=== PATIENT | male | born 1950 | race Two or more races ===

== ENCOUNTER 2017-02-28 09:11 | Inpatient (IN) | payer OTHER ==
--- NOTE | 2017-02-28 09:49 | CPEKG ---
Heart Rate: 109 RR Interval: 550 QRSD Interval: 144 QT Interval: 384 QTC Interval: 518 QRS [place]: -63 T Wave [place]: 125 EKG Severity - ABNORMAL ECG - EKG Impression: AFIB/FLUT AND V-PACED COMPLEXES Electronically Signed By: Matt Echols 01-Mar-2017 09:00:13
[2017-02-28 10:48] LABS: % IMMATURE GRANULYOCYTES 0.4 % (0.0-1.1); ABSOLUTE IMMATURE GRANULOCYTES 0.05 10^3/uL (0.00-0.10); ADD DIFF? NO; ADD MORPH? NO; ADD SCAN? NO; ATYPICAL LYMPHOCYTE FLAG 10 (0-99); FRAGMENT RBC FLAG 30 (0-99); HEMATOCRIT 34.6 % (40.0-51.0); LEFT SHIFT FLG 0 (0-99); LIPEMIA HEMOLYSIS FLAG 80 (0-99); MEAN CELL HEMOGLOBIN 30.2 pg (27.9-34.1); MEAN CELL HEMOGLOBIN CONCENTR. 31.8 g/dL (32.4-36.7); MEAN CELL VOLUME 95.1 fL (81.5-99.8); MEAN PLATELET VOLUME 10.3 fL (8.7-11.7); PLATELET CLUMPS FLAG 10 (0-99); PLATELET COUNT 173 10^3/uL (150-400); RED BLOOD CELL COUNT 3.64 10^6/uL (4.40-6.38)
[2017-02-28 10:56] LABS: ANION GAP 14 mEq/L (8-16); CALCIUM 9.2 mg/dL (8.5-10.4); CARBON DIOXIDE 19 mEq/l (22-31); CHLORIDE 106 mEq/L (97-110); CREATININE 0.9 mg/dL (0.7-1.3); GLOMERULAR FILTRATION RATE > 60; GLUCOSE 108 mg/dL (70-100); POTASSIUM 3.6 mEq/L (3.5-5.2); SODIUM 139 mEq/L (134-144)
--- NOTE | 2017-02-28 11:12 | EDPHY ---
H & P Stated Complaint: cough Time Seen by Provider: 02/28/17 09:27 HPI/ROS: CHIEF COMPLAINT: Dyspnea, cough HISTORY OF PRESENT ILLNESS: The patient presents to the ED with a 2 day history of increasing dyspnea and cough. The patient has a history of pancreatic cancer. He is currently on a chemotherapy holiday and has been so for the past 2 weeks. The patient reports that he is on chronic oxygen. The patient does have a history of a pleural effusion requiring drainage in 2016. The patient also has a history of cirrhosis and alcohol abuse. The patient denies fever. He reports that his cough has been nonproductive. He denies any complaints of abdominal pain, nausea or vomiting. The patient does have symptoms surrounding chronic pain. The patient reports that his cough is nonproductive. The patient denies any recent antibiotic use REVIEW OF SYSTEMS: A comprehensive 10 point review of systems is otherwise negative aside from elements mentioned in the history of present illness. Source: Patient - Personal History Current Tetanus/Diphtheria Vaccine: Yes Current Tetanus Diphtheria and Acellular Pertussis (TDAP): Yes - Medical/Surgical History Hx Asthma: No Hx Chronic Respiratory Disease: Yes Hx Diabetes: Yes Hx Cardiac Disease: Yes Hx Renal Disease: No Hx Cirrhosis: No Hx Alcoholism: Yes Hx HIV/AIDS: No Hx Splenectomy or Spleen Trauma: No Other PMH: pneumonia. hyperlipidemia. sleep apnea, torn retina, hip replacemtnt , tonsils, hernia repair, alcoholism, diabetes M II,. pancreatic CA , fatty liver, cholecystectomy, lung ca - Social History Smoking Status: Former smoker - Physical Exam Exam: General Appearance: Elderly male, no acute distress, deconditioned Eyes: Pupils equal and round no pallor or injection ENT, Mouth: Mucous membranes moist Respiratory: Decreased breath sounds noted right lung base, faint rhonchi appreciated on exam bilaterally Cardiovascular: Regular rate and rhythm Gastrointestinal: Abdomen is soft and nontender, no masses, bowel sounds normal Neurological: A&O, normal motor function, normal sensory exam, normal cranial nerves Skin: Warm and dry, no rashes Musculoskeletal: Neck is supple nontender Extremities: symmetrical, full range of motion Constitutional: Initial Vital Signs Temperature (C) 37.1 C 02/28/17 09:15 Heart Rate 126 H 02/28/17 09:15 Respiratory Rate 24 H 02/28/17 09:15 Blood Pressure 157/59 H 02/28/17 09:15 O2 Sat (%) 5 L 02/28/17 09:15 O2 Delivery Mode Oxymask O2 (L/minute) 15 Allergies/Adverse Reactions: No Known Allergies Allergy (Verified 08/03/16 18:02) Home Medications: Medication Instructions Recorded QUEtiapine FUMARATE [Seroquel 300 mg PO HS 05/18/16 300mg (*)] Venlafaxine Xr [Effexor Xr] 150 mg PO DAILY 05/18/16 Aspirin [Aspirin 81mg (*)] 81 mg PO DAILY 07/12/16 Ondansetron Odt [Zofran Odt 4 mg 4 mg PO TID PRN 08/03/16 (*)] Hydrocodone/Acetaminophen [[place] 1 each PO Q4HRS PRN 02/28/17 5/325 (*)] LORazepam [Ativan (*)] 1 mg PO BID@11,21 02/28/17 Multivitamins [Multivitamin (*)] 1 each PO DAILY 02/28/17 Omeprazole [Prilosec 20 mg] 40 mg PO DAILY 02/28/17 amLODIPine BESYLATE [Norvasc 10 mg 10 mg PO DAILY 02/28/17 (*)] morphINE SR [MS Contin/Oramorph SR 30 mg PO BID 02/28/17 30 mg (*)] Medical Decision Making - Diagnostics EKG Interpretation: EKG: Complete interpretation has been separately recorded in the [employer] archive. Summary impression: Intermittent pacing noted, underlying first- degree AV block, sinus rhythm Imaging Results: Chest x-ray PA lateral: Images reviewed by myself and discussed with radiologist: Elevated right hemidiaphragm, right pleural effusion, bilateral pulmonary infiltrates noted. CT chest angiogram: No evidence of pulmonary emboli, large loculated pleural effusion noted at right lung base, worsening metastatic disease. Images reviewed by myself and discussed with radiologist. Imaging: Discussed imaging studies w/ etcher printed circuit boards Radiologist ED Course/Re-evaluation: The patient presents to the ED with a 2 day history of dyspnea. The patient is noted to have a recurrent pleural effusion and initially what was felt to be a infiltrate noted on his chest x-ray. The patient did undergo a CT pulmonary angiogram for further characterization of this chest x-ray which demonstrates no evidence of thromboembolic disease. The patient does have a large loculated pleural effusion. The patient does have some ground-glass appearance to his lung parenchyma on chest x-ray. The patient has had blood cultures x2 obtained in the ED. The patient has been given a single dose of Levaquin to cover for a possible infectious etiology of his symptoms. The patient will require admission to the hospital and likely thoracentesis for further evaluation of his pleural effusion. The patient will be admitted to the hospitalist service. I discussed the case with the hospitalist. The patient will be admitted by Dr. Waldron. The patient did undergo serial examinations while in the emergency department. He remained hemodynamically stable while on supplemental oxygen. Differential Diagnosis: Differential diagnosis considered includes pneumonia, bronchitis, influenza, pleural effusion, arrhythmia, heart failure - Data Points Laboratory Results: Laboratory Results 02/28/17 09:31 02/28/17 09:31 Medications Given: Discontinued Medications Levofloxacin/Dextrose (Levaquin 750 Mg (Premix)) 150 mls @ 100 mls/hr IV EDNOW ONE PRN Reason: Protocol Stop: 02/28/17 13:48 Last Admin: 02/28/17 13:15 Dose: 150 mls Departure - Departure Disposition: [facility] Inpatient Acute Clinical Impression: Pleural effusion, Pancreatic cancer, Hypoxia, Dyspnea Condition: Fair
[2017-02-28 11:32] LABS: TROPONIN I 0.072 ng/mL (0-0.034)
[2017-02-28] MEDS ORDERED: IOPAMIDOL (ISOVUE 370) 100 ML BTL IV ONE (12:35)
[2017-02-28] MEDS ORDERED: ONDANSETRON DISINTEGRATING 4 MG TAB PO PRN (12:44)
[2017-02-28] MEDS ORDERED: ONDANSETRON 4 MG/2 ML VIAL IVP PRN (12:44)
[2017-02-28] MEDS ORDERED: ACETAMINOPHEN 325 MG TAB PO PRN (12:44)
[2017-02-28 14:01] LABS: BASE EXCESS -5.2 mEq/L (-2.5-2.5); BICARBONATE 19 mEq/L (22-26); MEASURED OXYGEN SATURATION 93 % (92-95); PCO2 35 mmHg (34-38); PO2 74 mmHg (65-75); TCO2 20 mEq/L (23-27)
--- NOTE | 2017-02-28 14:03 | GHP ---
[f rep st] HISTORY AND PHYSICAL DATE OF ADMISSION: 02/28/2017 CHIEF COMPLAINT: Hypoxia. HISTORY OF PRESENT ILLNESS: Patient is a 66-year-old male with known metastatic pancreatic cancer, last chemo 2 to 3 weeks ago, presenting with progressive shortness of breath. Had to restart using his home oxygen 8 days ago at 3 L due to shortness of breath. This was significantly progressive over the last couple days, especially with walking. He is now requiring 4 L. He complains of a dry cough. Denies fevers or sweats. Has intermittent chills. No nausea, vomiting, or diarrhea. No headache. No myalgias. No sick contacts. No diarrhea. Has had decreased p.o. intake. Per , some days he is very energetic and has not slept in the last couple of nights. REVIEW OF SYSTEMS: I completed a 10-point review of systems, negative except as noted in HPI. PAST MEDICAL HISTORY: 1. Metastatic pancreatic cancer, followed by Dr. Colmenares. Last chemo 2-3 weeks ago. The patient had a CT January 28 showing new left upper, lower alveolar opacities. Loculated pleural effusion. Small left pleural effusion and small ascites in the pelvis. 2. Cirrhosis. 3. Type 2 diabetes. 4. Carotid stenosis. 5. Complete heart block, status post pacer. 6. Depression. 7. Hypertension. 8. LUCINA on CPAP. 9. Pleural effusion, status post thoracentesis. 10. Echocardiogram May 2016, EF is 50%, diastolic dysfunction is indeterminate. RVSP is 42 mmHg. Mild to moderate pulmonary hypertension. PAST SURGICAL HISTORY: 1. Hip. 2. Tonsillectomy. 3. Hernia repair. 4. Pacemaker. 5. Cholecystectomy. SOCIAL HISTORY: Lives in [place] with his . Occasional cigarettes. No _ . No illicits. ALLERGIES: No known drug allergies. FAMILY HISTORY: No cancers. HOME MEDICATIONS: MS Contin 30 mg b.i.d., Norvasc 10 daily, Effexor 150 daily, quetiapine 300 q.h.s., Zofran as needed, omeprazole 40 mg daily, multivitamin, Ativan 1 mg p.o. b.i.d., [place] p.r.n., aspirin. PHYSICAL EXAMINATION: VITAL SIGNS: Temperature 37, blood pressure 148/84, heart rate 100, respiration 92, O2 is 93% on 15 L OxyMask. GENERAL: Patient is cachectic, sitting up in bed, in no acute distress. HEENT: PERRLA. Dry mucous membranes. CARDIOVASCULAR: Tachy, regular rate. No murmurs, gallops, or rubs. LUNGS: Decreased breath sounds of left lung base. Decreased breath sounds right lung base to mid lung. ABDOMEN: Mildly distended, firm, but soft. Positive bowel sounds. No tenderness. GENITOURINARY: No suprapubic tenderness. MUSCULOSKELETAL: 5/5 upper and lower extremities strength. NEUROLOGIC: 2 through 12 intact. PSYCHIATRIC: Alert and oriented x3.. LABORATORY DATA: WBC is 13, hemoglobin 11, hematocrit 34, platelets 173. Sodium 139, potassium 3.6, chloride 106, carbon dioxide 19, creatinine 0.9, glucose 108. Troponin is 0.072. BNP is 1780. EKG personally reviewed by me, Willow johnson. Chest x-ray is personally reviewed by me. Bilateral lobe opacities, elevated right hemidiaphragm. ASSESSMENT/PLAN: 1. Acute hypoxic respiratory failure: Differential includes pleural effusion, chemo-induced pneumonitis, progression of disease, infection, PE, or cardiac. Ground-glass opacities new from Jul 2016. IV Solumedrol per Dr. Childress's recs. Patient is currently afebrile. CT negative for PE. IR to drain right-side effusion. 2. Indeterminate troponin: suspect demand. Denies CP. Repeat EKG, trop and TTE. Denies overt chest pain. 3. Metastatic pancreatic cancer: Recent scan in January 2017 demonstrated pulmonary infiltrates with small amount of ascites. Currently being followed by Dr. Colmenares. He has been off chemo for a couple weeks. Will discuss with Oncology here today. 4. History of cirrhosis, stable. 5. Leukocytosis. Differential again is stress inflammation versus infection. Will empirically treat until CT is completed. 6. Benign hypertension. Continue home medications. 7. Chronic pain secondary to malignancy. Continue MS Contin and p.r.n. oxycodone with a bowel regimen. 8. Depression. Continue home medications. 9. History of a complete heart block, status post pacemaker. 10. Obstructive sleep apnea on CPAP. 11. Diet: Regular. 12. Deep venous thrombosis prophylaxis: Lovenox. DISPOSITION: Patient warrants inpatient admission given acute hypoxemic respiratory failure. Monitoring continuous pulse ox, telemetry, and further evaluation. /[id number]/MODL MTDD
--- NOTE | 2017-02-28 15:06 | CPEKG ---
Heart Rate: 100 RR Interval: 600 P-R Interval: 128 QRSD Interval: 156 QT Interval: 408 QTC Interval: 527 P [place]: 30 QRS [place]: -85 T Wave [place]: 57 EKG Severity - ABNORMAL ECG - EKG Impression: ATRIAL-SENSED VENTRICULAR-PACED COMPLEXES EKG Impression: COMPARED WITH 02/28/2017 AT 9:46 A.M., VENTRICULAR PACING NOW PRESENT Electronically Signed By: Tierney Benavidez 28-Feb-2017 16:50:42
[2017-02-28 15:15] LABS: INR 1.27 (0.83-1.16); PROTIME(PATIENT) 15.9 SEC (12.0-15.0)
[2017-02-28] MEDS ORDERED: NS 1,000 ML IV SCH (15:15)
[2017-02-28] MEDS ORDERED: LIDOCAINE 1% 300 MG/30 ML SDV ONE (15:49)
[2017-02-28] MEDS: methylPREDNISolone SOD SUCC 125 MG/2 ML VIAL IVP SCH (15:54)
[2017-02-28] MEDS: HYDROCODONE/APAP 5/325 TAB PO PRN (15:57)
--- NOTE | 2017-02-28 16:49 | GCON ---
[f rep st] CONSULTATION HISTORY OF PRESENT ILLNESS: The patient is a very pleasant 66-year-old male who has a history of me tastatic pancreatic carcinoma. He is followed by my partner, Dr. Geetha Colmenares. He was initially diagn osed in the fall of 2015, when he presented with abdominal pain, and was found to have a right pleur al effusion and indeterminate pulmonary nodules. He also had a hypodensity in his pancreas, and an FNA of the mass showed adenocarcinoma. There were also peripancreatic lymph nodes that were involve d, and my understanding is his pleural fluid cytology was malignant. He was placed on, initially, g emcitabine, and then gemcitabine and Abraxane. He has been felt to have a response based on scannin g and a decline in his tumor marker. He has been off chemotherapy for about 3 weeks and has develop ed increasing shortness of breath with a cough and came to [facility] today, where darron grant was noted to be hypoxemic and was admitted. Chest imaging showed some increasing pulmonary nodule s compared to a study from July, and I also compared this to a study from January of 2017, done at [facility], which shows some mild progression in pulmonary metastatic disease. There is a large loculated pleural effusion on the right with compressive atelectasis to the right lower lobe. There is a sma ller left pleural effusion. There is a definite increase in patchy ground glass opacities, intersti tial prominence, particularly in the right upper lung. He has been placed on broad-spectrum antibio tics and cultured. PAST MEDICAL HISTORY: Significant for cirrhosis, type 2 diabetes, carotid stenosis, complete heart block with a pacemaker placed, depression, hypertension, obstructive sleep apnea, and diastolic dysf unction. SURGICAL HISTORY: Includes hip replacement, tonsillectomy, hernia repair, pacemaker, and cholecyste ctomy. He lives in [place] with his . He is an occasional smoker. ALLERGIES: He has no known drug allergies. FAMILY HISTORY: Noncontributory. MEDICATIONS: On admission, included MS Contin, Norvasc, Effexor, and omeprazole. PHYSICAL EXAM: GENERAL: He is a pleasant, alert male, on oxygen. VITAL SIGNS: Blood pressure 120 /70, heart rate 105, respiratory rate 24. He is 93% on 15 L. HEENT: Pharynx is unremarkable. HEA RT: He is tachycardic with a regular rhythm. LUNGS: He has somewhat decreased breath sounds at hi s bases and a few inspiratory rales. ABDOMEN: Benign without organomegaly. EXTREMITIES: No obvio us edema. NEUROLOGIC: Exam is nonfocal. LABORATORY DATA: White count is 13,000, hemoglobin 11, hematocrit 34.6, platelets 173,000. Customs Brokerage Agent ry panel is generally unremarkable. BNP is a bit elevated at 1780. IMPRESSION: Patient with pancreatic cancer, on chemotherapy, with increasing shortness of breath an d cough. He probably has some evidence of progressive disease based on his CT scan and a recent ris e in his tumor marker. He does have significant ground-glass opacities which have worsened over the last month, and I am a bit suspicious this may represent a chemotherapy-induced pneumonitis; I thin k both gemcitabine and/or Abraxane could be the culprit. In addition to his antibiotics, I recommen ded starting him on Solu-Medrol at 100 mg every 12 hours and follow him clinically for response. Ca se discussed with Dr. Nikki Waldron of the hospitalist service. He is a no COR, which I think is a ppropriate, considering his overall situation. Our service will follow with you. /[id number]/MODL
[2017-02-28 17:36] LABS: LACTATE DEHYDROGENASE 721 IU/L (313-618)
[2017-02-28 18:32] LABS: LD, PLEURAL FLUID 7967 IU/L
[2017-02-28] MEDS: LORazepam 1 MG TAB PO SCH (20:04)
[2017-02-28] MEDS: QUEtiapine FUMARATE 300 MG TAB PO SCH (20:04)
[2017-02-28] MEDS: morphINE SR 30 MG TAB PO SCH (20:04)
[2017-03-01] MEDS: methylPREDNISolone SOD SUCC 125 MG/2 ML VIAL IVP SCH ×2 (02:52→15:36)
[2017-03-01 04:24] LABS: HEMOGLOBIN 7.6 g/dL (13.7-17.5); MEAN CELL HEMOGLOBIN 29.7 pg (27.9-34.1); MEAN CELL HEMOGLOBIN CONCENTR. 31.7 g/dL (32.4-36.7); MEAN CELL VOLUME 93.8 fL (81.5-99.8); RED BLOOD CELL COUNT 2.56 10^6/uL (4.40-6.38); RED CELL DISTRIBUTION WIDTH 16.7 % (11.5-15.2)
[2017-03-01 04:52] LABS: ANION GAP 6 mEq/L (8-16); CALCIUM 8.4 mg/dL (8.5-10.4); CARBON DIOXIDE 22 mEq/l (22-31); CHLORIDE 111 mEq/L (97-110); CREATININE 0.8 mg/dL (0.7-1.3); GLOMERULAR FILTRATION RATE > 60; GLUCOSE 137 mg/dL (70-100); POTASSIUM 4.3 mEq/L (3.5-5.2); SODIUM 139 mEq/L (134-144)
[2017-03-01 06:57] LABS: HEMATOCRIT 23.7 % (40.0-51.0); HEMOGLOBIN 7.6 g/dL (13.7-17.5)
[2017-03-01] MEDS: ASPIRIN 81 MG CHEWABLE TAB PO SCH (07:37)
[2017-03-01] MEDS: VENLAFAXINE XR 150 MG CAP PO SCH (08:08)
[2017-03-01] MEDS: PANTOPRAZOLE SODIUM 40 MG TAB PO SCH (08:08)
[2017-03-01] MEDS: MULTIVITAMINS 1 EACH TAB PO SCH (08:08)
[2017-03-01] MEDS: morphINE SR 30 MG TAB PO SCH ×2 (08:08→20:12)
--- NOTE | 2017-03-01 08:45 | HOSPPROG ---
Hospitalist Progress Note Assessment/Plan: #Acute blood loss anemia: drop in H/H overnight. Concern for hemothorax with reaccumulation on CXR. Dr. Mallory consulted for chest tube. Repeating H/H, transfuse if Hb <7 #Acute on chronic hypoxemic resp failure: multifactorial with effusion, +/- chemo-induced pneumonitis, possible PNA -empiric abx, IV steroids #Indeterminate trop: suspect demand with acute illness. Denies CP. TTE pending #Metastatic pancreatic cancer: chemo on hold #Depression: home meds #Compensated cirrhosis: stable #Diet: regular #DVT ppx: SCDs #Disp: warrants inpt admission given acute hypoxia, now with chest tube Subjective: drop in H/H overnight. Denies any bleeding. SOB improved Objective: Vital Signs Temp Pulse Resp BP Pulse Ox 36.3 C 77 25 H 130/61 H 95 03/01/17 07:25 03/01/17 07:25 03/01/17 07:25 03/01/17 08:08 03/01/17 07:25 Microbiology 02/28/17 19:45 Respiratory Panel (PCR) - Final Nasal, Sinus - [place] Viral Transport No Organism Detected 02/28/17 16:55 Gram Stain - Final Thoracic Fluid - Aspirate Laboratory Results 03/01/17 06:45 03/01/17 04:15 02/28/17 03/01/17 03/02/17 05:59 05:59 05:59 Intake Total 1569 Output Total 150 Balance 1419 PT 15.9 SEC (12.0-15.0) H 02/28/17 14:55 INR 1.27 (0.83-1.16) H 02/28/17 14:55 - Physical Exam Constitutional: no apparent distress, chronically ill appearing Eyes: PERRL Ears, Nose, Mouth, Throat: moist mucous membranes Cardiovascular: regular rate and rhythym Respiratory: other (decreased BS right lung mid-base) Gastrointestinal: normoactive bowel sounds Genitourinary: no bladder fullness Skin: warm Musculoskeletal: full muscle strength Neurologic: AAOx3, CN II-XII Intact Psychiatric: interacting appropriately ICD10 Worksheet Patient Problems: Problems Problem Status Onset Dyspnea Acute Hypoxia Acute Pancreatic cancer Acute Pleural effusion Acute Cholecystitis Acute Complete heart block Acute Hypotension Acute Pancreatic mass Acute Pleural effusion Acute Pulmonary nodules Acute Renal failure Acute Respiratory failure Acute
[2017-03-01] MEDS ORDERED: NON-FORMULARY NEW DRUG (Omeprazole [Prilosec 20 Mg] 40 MG) PO SCH (09:00)
[2017-03-01] MEDS ORDERED: LIDO/EPI 1% **Not for Epidural 20 ML MDV NB ONE (09:11)
[2017-03-01 09:48] LABS: HEMATOCRIT 24.6 % (40.0-51.0)
[2017-03-01] MEDS: LORazepam 1 MG TAB PO SCH ×2 (10:01→20:12)
--- NOTE | 2017-03-01 10:32 | ECHO ---
[id number] + + [address] : : [place] [address] : : [phone] + + Adult Echocardiographic Report + -------+ :Name: ERIC CALLEanusha Date: 03/01/2017 07:30 AM BP: 114/58 mmH g : : Hospital Admission Number: [id number] Locati on: 242: :: 1950 Gender: Male Height: 61 in : :Age: 66 yrs Race: HL,PTNP,OTH Weight: 122 lb : :Reason For Study: eal for WM abnormalities, pulm HTN : : BSA: 1.5 meter s2 : :History: new hypoxia : + -------+ MMode/2D Measurements \T\ Calculations IVSd: 0.66 cm RVDd: 3.3 cm FS: 28.1 % Ao root diam: LVPWd: 0.91 cm LVIDd: 5.0 cm EDV(Teich): 3.3 cm LVIDs: 3.6 cm 115.5 ml LA dimension: ESV(Teich): 53.0 ml2.7 cm EF(Teich): 54.1 % LVOT diam: 1.8 cmLVLd ap4: 8.0 cm SV(MOD-sp4): LVOT area: EDV(MOD-sp4): 72.0 ml 2.7 cm2 123.0 ml LVLs ap4: 6.8 cm ESV(MOD-sp4): 51.0 ml EF(MOD-sp4): 58.5 % Normal Measurement Values: + + :LVIDd (3.5-5.7cm) IVSd (0.6-1.1cm) LVPWd (0.6-1.1cm) Aortic Root (2.0-3.7cm)Left Atrium (1.5-4.0cm): :LV Vol(d) (76-115ml) LV Vol(s) (29-48ml) Ejec Fraction (50-65%)PV Rboin (0.6- 1.2m/s) TV Robin (0.4-1.0m/s) : :MV E Robin (0.8-1.0m/s)MV A Robin (0.3-1.0m/s)LVOT Robin (0.7-1.2m/s) Asc Ao Robin ( 0.9-1.8m/s) : + + Doppler Measurements \T\ Calculations MV E max robin: Ao V2 max: LV V1 max: PA V2 max: 72.1 cm/sec 151.3 cm/sec 102.7 cm/sec 96.4 cm/sec MV A max robin: Ao max PG: LV V1 max PG: PA max P.1 cm/sec 9.2 mmHg 4.2 mmHg 3.7 mmHg MV E/A: 0.69 FERN(V,D): 1.8 cm2 MV dec time: 0.25 sec TR max robin: 258.3 cm/sec TR max P.7 mmHg RAP systole: 5.0 mmHg RVSP(TR): 31.7 mmHg Left Ventricle The left ventricle is normal in size and function. There is normal left ventricular wall thickness. Ejection Fraction = 55%. There is Doppler evidence for diastolic dysfunction. No regional wall motion abnormalities noted. Right Ventricle The right ventricle is normal in size and function. There is a pacemaker lead in the right ventricle. Atria The left atrial size is normal. Right atrial size is normal. Mitral Valve The mitral valve leaflets appear thickened, but open well. Calcified mitral apparatus. There is no mitral valve stenosis. There is trace to mild mitral regurgitation. Tricuspid Valve The tricuspid valve is normal in structure and function. There is no tricuspid stenosis. There is mild tricuspid regurgitation. Right ventricular systolic pressure is 32mmHg. Aortic Valve The aortic valve is trileaflet. Mild to moderate aortic sclerosis without stenosis. Probable lamble noted on aortic leaflet. There is no aortic stenosis. There is no aortic insufficiency. Pulmonic Valve The pulmonic valve is normal in structure and function. There is no pulmonic valvular regurgitation. Great Vessels The aortic root is normal size. Pericardium/Pleural There is no pericardial effusion. There is a moderate pleural effusion. Conclusion A two-dimensional transthoracic echocardiogram with M-mode and Doppler was performed. The left ventricle is normal in size and function. Ejection Fraction = 55%. There are no regional wall motion abnormalities. There is Doppler evidence for diastolic dysfunction. Mild aortic sclerosis and MAC. Lambl's excrescences noted on the aortic valve. There is trace to mild mitral regurgitation. There is mild tricuspid regurgitation. Right ventricular systolic pressure is 32mmHg. There is a moderate pleural effusion. Final Reading Physician: Gary Pedroza signed on 03/01/2017 10:31 AM Ordering Physician: Nikki Waldron Performed By: Rocío Pierre
[2017-03-01 14:14] LABS: HEMATOCRIT 24.9 % (40.0-51.0)
--- NOTE | 2017-03-01 14:46 | GPN ---
[f rep st] PROCEDURE NOTE DATE OF PROCEDURE: 03/01/2017 SURGEON: [place] HEMATOLOGY TECHNOLOGIST: None. ANESTHESIA: 1% lidocaine with bicarbonate for a field block. PREOPERATIVE DIAGNOSIS: Right pleural effusion. POSTOPERATIVE DIAGNOSIS: same. PROCEDURE PERFORMED: Right chest tube thoracostomy placement with ultrasound guidance. ESTIMATED BLOOD LOSS: From procedure 5 cc, 200 cc of old blood evacuated upon entering the patient's chest cavity. DRAINS: A 28-[place] straight chest tube. OPERATIVE FINDINGS: Ultrasound guidance showed a loculated fluid collection, successful placement of chest tube. DESCRIPTION OF PROCEDURE: The patient was greeted in the intensive care unit. I explained the risks, benefits, and alternatives to placement with him and his , and he wished to proceed. The consent was signed. Prior to prepping and draping, I used the ultrasound to successfully identify an area of placement, and it was marked on the patient's posterior back. His right back was then prepped and draped in a typical sterile fashion. I created a field block using 1% lidocaine buffered with epinephrine. After this was done, I made a 2 cm incision and carried it down through the subcutaneous tissue where I encountered the rib. In the intercostal space, above the upper table, I successfully entered the patient's chest cavity and had a solis of what appeared to be old blood. Through this, I placed a 28-[place] straight chest tube into the chest cavity successfully. It was then attached to the Pleur-Evac where I evacuated about 200 cc of what appeared to be old blood. It was attached to the skin with an interrupted 0 silk suture. The patient tolerated the procedure well without any intraprocedural complications. /[id number]/MODL MTDD
--- NOTE | 2017-03-01 14:51 | GCON ---
[f rep st] CONSULTATION DATE OF CONSULTATION: 03/01/2017 CHIEF COMPLAINT: Complex pleural effusion. HISTORY OF PRESENT ILLNESS: This is a 66-year-old male, actually known to me from a previous hospitalization in the fall of last year. At any rate, in his subsequent hospital course, the patient had subsequently been diagnosed with metastatic pancreatic cancer and has been receiving palliative treatment for that. Briefly, his last chemotherapy was about 2-3 weeks ago and he presented to the emergency department with progressive shortness of breath yesterday. In this time, he had to restart using his home oxygen up to 3 L due to the shortness of breath. It has been progressive over the last couple of days, especially with activity, and at times requiring up to 4-5 L. in addition, he also complains of a dry cough which is nonproductive. He denies having any other symptoms, including fevers, night sweats, or chills. No nausea, vomiting , or diarrhea. No headache or any other complaints other than the above. He subsequently, since his admission, has had multiple imaging modalities performed including a chest x-ray and a CT scan. His initial CT scan showed a fairly well loculated pleural effusion on the right side which was tapped yesterday under ultrasound guidance. They got about 800 cc of bloody fluid out for which was sent for culture and cytology. Since that time, the patient has been doing overall well, stating that his cough is somewhat better and clinically improving, although repeat chest x-ray today shows that he has almost complete reaccumulation of the fluid at that site. I was consulted to evaluate this and possibly place a chest tube. PAST MEDICAL HISTORY: 1. Metastatic pancreatic cancer followed by Dr. Colmenares, currently on chemotherapy. 2. Cirrhosis. 3. Type 2 diabetes. 4. Carotid stenosis. 5. Complete heart block on a pacer. 6. Depression. 7. Hypertension. 8. Obstructive sleep apnea on CPAP. 9. Pleural effusion. 10. Diastolic dysfunction with an ejection fraction of 50%. PAST SURGICAL HISTORY: Hip surgery, tonsillectomy, hernia repair, pacemaker and cholecystectomy. SOCIAL HISTORY: Lives in [place] with his . Occasional cigarette. Denies any illicit drug use. REVIEW OF SYSTEMS: A full 10-point review was performed and, unless explicitly stated above, is otherwise negative. PHYSICAL EXAMINATION: VITAL SIGNS: Temperature 36.6, heart rate 90, blood pressure 113/57, and he is 95% on 8 L. GENERAL: He is alert and oriented, in no acute distress. HEENT: Eyes: His extraocular movements are intact. His pupils are equal, round , reactive. Ears, nose and throat: Mucous membranes moist. CV: He has a regular rate and rhythm with no murmurs. RESPIRATORY: He has diminished lung sounds at the right base. The remainder of his lungs are clear. GI: His abdomen is soft, nondistended, nontender. MUSCULOSKELETAL: 5/5 strength in both upper and lower extremities. SKIN: Warm without any new lesions. NEUROLOGIC: He is alert and oriented. PSYCH: He appears to have capacity and understanding of what is going. CURRENT LABORATORY DATA: Hemoglobin 8, hematocrit 24. Coags: INR 1.27. IMAGING: All of which the images were personally reviewed by me include a chest x-ray from yesterday which showed almost complete resolution of the fluid. A previous CT scan showed that he had a fairly large loculated effusion on that right side. His chest film from earlier today shows that the fluid has almost universally reaccumulated. ASSESSMENT/PLAN: A 66-year-old male with metastatic pancreatic cancer, likely malignant effusion, question bloody. On my assessment of the patient currently he is clinically stable. His vital signs do not portend that he is currently in extremis, although I do believe that the drop in his hemoglobin and hematocrit is real as it was rechecked and it was 11 yesterday and is down to almost 7.6 today. I did perform a bedside ultrasound today trying to identify the fluid collection that is fairly posterior and loculated. I had Dr. Carter from the Interventional Radiology team come and actually perform the ultrasound with me so that we could identify successfully a place to place the chest tube. My recommendation to the patient was that we do place a chest tube given the fact that we do feel that the fluid here likely represents old blood. I discussed my findings with the attending medicine physician, Dr. Waldron, as well and we feel that tube thoracostomy placement to that side would be beneficial given the fast reaccumulation in this fairly ill patient. Risks, benefits and alternatives to placement were discussed with the patient at the bedside today. /[id number]/MODL MTDD
--- NOTE | 2017-03-01 15:54 | SOAPPROG ---
SOAP Progress Note Assessment/Plan: Assessment: 1. Pancreatic cancer, stage 4 2. dyspnea, pulmonary infiltrates, pleural effusion. Events noted, he now has r chest tube Plan: Continue r chest tube drainage, steroids, antibiotics 03/01/17 15:51 Subjective: SOB Objective: Vital Signs Temp Pulse Resp BP Pulse Ox 97.9 F 97 24 H 145/65 H 96 03/01/17 15:34 03/01/17 15:34 03/01/17 15:34 03/01/17 15:34 03/01/17 15:34 Microbiology 02/28/17 16:55 Gram Stain - Final Thoracic Fluid - Aspirate 02/28/17 19:45 Respiratory Panel (PCR) - Final Nasal, Sinus - [place] Viral Transport No Organism Detected Laboratory Results 03/01/17 14:00 03/01/17 04:15 02/28/17 03/01/17 03/02/17 05:59 05:59 05:59 Intake Total 1569 Output Total 150 Balance 1419 PT 15.9 SEC (12.0-15.0) H 02/28/17 14:55 INR 1.27 (0.83-1.16) H 02/28/17 14:55 Physical Exam - Physical Exam General Appearance: moderate distress Respiratory: decreased breath sounds Cardiac/Chest: regular rate, rhythm Abdomen: normal bowel sounds, non-tender ICD10 Worksheet Patient Problems: Problems Problem Status Onset Dyspnea Acute Hypoxia Acute Pancreatic cancer Acute Pleural effusion Acute Cholecystitis Acute Complete heart block Acute Hypotension Acute Pancreatic mass Acute Pleural effusion Acute Pulmonary nodules Acute Renal failure Acute Respiratory failure Acute
[2017-03-01] MEDS: QUEtiapine FUMARATE 300 MG TAB PO SCH (20:12)
[2017-03-01 20:39] LABS: HEMOGLOBIN 7.5 g/dL (13.7-17.5)
[2017-03-02] MEDS: methylPREDNISolone SOD SUCC 125 MG/2 ML VIAL IVP SCH ×2 (03:34→15:17)
[2017-03-02 03:59] LABS: HEMATOCRIT 21.9 % (40.0-51.0); RED BLOOD CELL COUNT 2.33 10^6/uL (4.40-6.38)
[2017-03-02 04:07] LABS: ALANINE AMINOTRANSFERASE 23 IU/L (21-72); ALBUMIN 2.5 g/dL (3.5-5.0); ALKALINE PHOSPHATASE 141 IU/L (38-126); ANION GAP 6 mEq/L (8-16); ASPARTATE AMINOTRANSFERASE 36 IU/L (17-59); BILIRUBIN,TOTAL 0.5 mg/dL (0.1-1.4); BILIRUBIN-CONJUGATED 0.5 mg/dL (0.0-0.5); CALCIUM 8.6 mg/dL (8.5-10.4); CARBON DIOXIDE 22 mEq/l (22-31); CHLORIDE 109 mEq/L (97-110); CREATININE 0.9 mg/dL (0.7-1.3); GLOMERULAR FILTRATION RATE > 60; GLUCOSE 163 mg/dL (70-100); POTASSIUM 4.5 mEq/L (3.5-5.2); SODIUM 137 mEq/L (134-144); TOTAL PROTEIN 5.7 g/dL (6.3-8.2)
[2017-03-02 04:16] LABS: % SATURATION 16 % (20-55); TOTAL IRON BINDING CAPACITY 222 ug/dL (260-490)
--- NOTE | 2017-03-02 07:46 | SOAPPROG ---
SOAP Progress Note Assessment/Plan: Assessment: 66 year old known to me for pancreatic cancer s/p chest tube placement for effusion - chest tube is kinked but functional. Still with residual effusion Much improved. Will place chest tube to water seal. Hopefully chest tube will be removed soon. S: Feeling better Plan: 03/02/17 07:45 03/02/17 13:26 Objective: Vital Signs Temp Pulse Resp BP Pulse Ox 36.7 C 72 12 121/55 H 98 03/01/17 20:00 03/02/17 04:00 03/02/17 04:00 03/02/17 04:00 03/02/17 04:00 Microbiology 02/28/17 16:55 Gram Stain - Final Thoracic Fluid - Aspirate 02/28/17 19:45 Respiratory Panel (PCR) - Final Nasal, Sinus - [place] Viral Transport No Organism Detected Laboratory Results 03/02/17 03:45 03/02/17 03:45 03/01/17 03/02/17 03/03/17 05:59 05:59 05:59 Intake Total 1569 1100 Output Total 150 750 Balance 1419 350 PT 15.9 SEC (12.0-15.0) H 02/28/17 14:55 INR 1.27 (0.83-1.16) H 02/28/17 14:55 Physical Exam - Physical Exam General Appearance: alert, no apparent distress, thin EENT: PERRL/EOMI, normal ENT inspection, No scleral icterus (R), No scleral icterus (L) Respiratory: other (chest tube in place. Decreased breathsounds right worse than left. ), No rales, No rhonchi Cardiac/Chest: regular rate, rhythm Skin: normal color, warm/dry Extremities: normal range of motion, non-tender Neuro/Psych: no motor/sensory deficits ICD10 Worksheet Patient Problems: Problems Problem Status Onset Dyspnea Acute Hypoxia Acute Pancreatic cancer Acute Pleural effusion Acute Cholecystitis Acute Complete heart block Acute Hypotension Acute Pancreatic mass Acute Pleural effusion Acute Pulmonary nodules Acute Renal failure Acute Respiratory failure Acute
[2017-03-02 10:20] LABS: HEMATOCRIT 22.9 % (40.0-51.0); HEMOGLOBIN 7.2 g/dL (13.7-17.5)
[2017-03-02] MEDS: ASPIRIN 81 MG CHEWABLE TAB PO SCH (10:21)
[2017-03-02] MEDS: MULTIVITAMINS 1 EACH TAB PO SCH (10:21)
[2017-03-02] MEDS: morphINE SR 30 MG TAB PO SCH ×2 (10:21→21:27)
[2017-03-02] MEDS: LORazepam 1 MG TAB PO SCH ×2 (10:21→21:27)
[2017-03-02] MEDS: VENLAFAXINE XR 150 MG CAP PO SCH (10:21)
[2017-03-02] MEDS: PANTOPRAZOLE SODIUM 40 MG TAB PO SCH (10:22)
[2017-03-02] MEDS: ENOXAPARIN 40 MG/0.4 ML SYR SC SCH (10:26)
[2017-03-02] MEDS: HYDROCODONE/APAP 5/325 TAB PO PRN (13:18)
[2017-03-02 14:02] LABS: HEMATOCRIT 22.5 % (40.0-51.0); HEMOGLOBIN 7.2 g/dL (13.7-17.5)
--- NOTE | 2017-03-02 16:36 | SOAPPROG ---
SOAP Progress Note Assessment/Plan: A/P: * Dyspnea: likely multifactorial (right pleural effusion, ?pneumonitis). Improved (thoracentesis, ?contribution of steroids). * Right malignant effusion: known malignant effusion since dx. Hopefully, can get CT out soon. * Metastatic pancreatic cancer: progressive disease by CT. Consider second- line chemo (liposomal irinotecan + 5-FU/LV) vs. best supportive care depending on functional status after this hospitalization. 03/02/17 16:36 Subjective: Breathing better. O: 96% on 6L. VS reviewed. CT output 500cc Gen: chronically ill appearing, NAD. Lungs: reduced BS right base, R CT with serosanguinous drainage. Abd: nontender. Unchanged umbilical nodularity (known cutaneous metastases). Laboratory Tests 03/02/17 03/02/17 03:45 03:45 WBC 10.09 H Hgb 7.0 L Plt Count 139 L Sodium 137 Potassium 4.5 Chloride 109 Carbon Dioxide 22 BUN 20 Creatinine 0.9 Glucose 163 H Total Bilirubin 0.5 AST 36 ALT 23 Alkaline Phosphatase 141 H Objective: Vital Signs Temp Pulse Resp BP Pulse Ox 36.6 C 85 12 132/68 H 96 03/02/17 12:00 03/02/17 16:00 03/02/17 16:00 03/02/17 16:00 03/02/17 16:00 Microbiology 02/28/17 16:55 Gram Stain - Final Thoracic Fluid - Aspirate Laboratory Results 03/02/17 13:50 03/02/17 03:45 03/01/17 03/02/17 03/03/17 05:59 05:59 05:59 Intake Total 1569 1100 Output Total 150 750 200 Balance 1419 350 -200 PT 15.9 SEC (12.0-15.0) H 02/28/17 14:55 INR 1.27 (0.83-1.16) H 02/28/17 14:55 ICD10 Worksheet Patient Problems: Problems Problem Status Onset Dyspnea Acute Hypoxia Acute Pancreatic cancer Acute Pleural effusion Acute Cholecystitis Acute Complete heart block Acute Hypotension Acute Pancreatic mass Acute Pleural effusion Acute Pulmonary nodules Acute Renal failure Acute Respiratory failure Acute
--- NOTE | 2017-03-02 18:03 | HOSPPROG ---
Hospitalist Progress Note Assessment/Plan: #Acute blood loss anemia: CT placed. Denies bleeding. Check FOBT. Transfuse if Hb <7 #Acute on chronic hypoxemic resp failure: improving. Multifactorial with effusion, +/- chemo-induced pneumonitis, possible PNA -empiric abx, IV steroids. #Indeterminate trop: suspect demand with acute illness. Denies CP. TTE pending #Metastatic pancreatic cancer: chemo on hold #Depression: home meds #Compensated cirrhosis: stable #Diet: regular #DVT ppx: SCDs #Disp: warrants inpt admission given acute hypoxia, now with chest tube Subjective: no dizziness, lightheadedness, CP or bleeding Objective: Vital Signs Temp Pulse Resp BP Pulse Ox 36.6 C 85 12 132/68 H 96 03/02/17 12:00 03/02/17 16:00 03/02/17 16:00 03/02/17 16:00 03/02/17 16:00 Microbiology 02/28/17 16:55 Gram Stain - Final Thoracic Fluid - Aspirate Laboratory Results 03/02/17 13:50 03/02/17 03:45 03/01/17 03/02/17 03/03/17 05:59 05:59 05:59 Intake Total 1569 1100 Output Total 150 750 200 Balance 1419 350 -200 PT 15.9 SEC (12.0-15.0) H 02/28/17 14:55 INR 1.27 (0.83-1.16) H 02/28/17 14:55 - Physical Exam Constitutional: chronically ill appearing, cachectic Eyes: PERRL Ears, Nose, Mouth, Throat: moist mucous membranes, hearing normal Cardiovascular: regular rate and rhythym, no murmur, rub, or gallop Respiratory: other (decreeased BS at bases. right-sided chest tube in place) Gastrointestinal: normoactive bowel sounds, soft, non-tender abdomen Genitourinary: no bladder fullness Skin: warm Musculoskeletal: full muscle strength Neurologic: AAOx3, CN II-XII Intact ICD10 Worksheet Patient Problems: Problems Problem Status Onset Dyspnea Acute Hypoxia Acute Pancreatic cancer Acute Pleural effusion Acute Cholecystitis Acute Complete heart block Acute Hypotension Acute Pancreatic mass Acute Pleural effusion Acute Pulmonary nodules Acute Renal failure Acute Respiratory failure Acute
[2017-03-02] MEDS: QUEtiapine FUMARATE 300 MG TAB PO SCH (21:27)
[2017-03-03] MEDS: methylPREDNISolone SOD SUCC 125 MG/2 ML VIAL IVP SCH (03:35)
[2017-03-03 05:43] LABS: HEMATOCRIT 21.9 % (40.0-51.0); MEAN CELL HEMOGLOBIN 30.2 pg (27.9-34.1); MEAN CELL VOLUME 94.4 fL (81.5-99.8); RED BLOOD CELL COUNT 2.32 10^6/uL (4.40-6.38); RED CELL DISTRIBUTION WIDTH 17.2 % (11.5-15.2)
--- NOTE | 2017-03-03 08:03 | SOAPPROG ---
SOAP Progress Note Assessment/Plan: Assessment: 66 year old known to me for pancreatic cancer s/p chest tube placement for effusion - chest tube is kinked but functional. Only 100 out in 24 hours. Removed chest tube. CXR at noon Getting blood transfusion S: Feeling better Plan: 03/02/17 07:45 03/02/17 13:26 03/03/17 08:01 Objective: Vital Signs Temp Pulse Resp BP Pulse Ox 36.7 C 82 15 133/67 H 92 03/03/17 07:54 03/03/17 07:54 03/03/17 07:54 03/03/17 07:54 03/03/17 07:54 Microbiology 02/28/17 16:55 Gram Stain - Final Thoracic Fluid - Aspirate Laboratory Results 03/03/17 05:30 03/02/17 03:45 03/02/17 03/03/17 03/04/17 05:59 05:59 05:59 Intake Total 1100 1300 Output Total 750 500 Balance 350 800 PT 15.9 SEC (12.0-15.0) H 02/28/17 14:55 INR 1.27 (0.83-1.16) H 02/28/17 14:55 Physical Exam - Physical Exam General Appearance: alert, no apparent distress, thin EENT: PERRL/EOMI, normal ENT inspection, scleral icterus (R), scleral icterus (L ) Neck: non-tender, full range of motion Respiratory: chest non-tender, lungs clear, other (decreased right base. Chest tube without air leak. 100 cc serosang in pleurovac) Cardiac/Chest: regular rate, rhythm Skin: normal color, warm/dry ICD10 Worksheet Patient Problems: Problems Problem Status Onset Dyspnea Acute Hypoxia Acute Pancreatic cancer Acute Pleural effusion Acute Cholecystitis Acute Complete heart block Acute Hypotension Acute Pancreatic mass Acute Pleural effusion Acute Pulmonary nodules Acute Renal failure Acute Respiratory failure Acute
[2017-03-03] MEDS: predniSONE 20 MG TAB PO SCH (10:01)
[2017-03-03] MEDS: LORazepam 1 MG TAB PO SCH ×2 (10:02→20:44)
[2017-03-03] MEDS: VENLAFAXINE XR 150 MG CAP PO SCH (10:02)
[2017-03-03] MEDS: PANTOPRAZOLE SODIUM 40 MG TAB PO SCH (10:02)
[2017-03-03] MEDS: MULTIVITAMINS 1 EACH TAB PO SCH (10:02)
[2017-03-03] MEDS: morphINE SR 30 MG TAB PO SCH ×2 (10:02→20:45)
[2017-03-03] MEDS: ENOXAPARIN 40 MG/0.4 ML SYR SC SCH (10:03)
--- NOTE | 2017-03-03 10:25 | HOSPPROG ---
Hospitalist Progress Note Assessment/Plan: #Acute blood loss anemia: H/H cont drift down. Will transfuse 1 unit. Check FOBT. #Acute on chronic hypoxemic resp failure: improving. Multifactorial with effusion, +/- chemo-induced pneumonitis, possible PNA. Diastolic dysfunction on echo -empiric abx. Change to prednisone today #Indeterminate trop: suspect demand with acute illness. Denies CP. TTE without wall motion abnormalities #Metastatic pancreatic cancer: chemo on hold at this point #Depression: home meds #Compensated cirrhosis: stable #Diet: regular #DVT ppx: SCDs #Disp: warrants inpt admission given acute hypoxia, now with chest tube Subjective: walked with PT, SOB improved Objective: Vital Signs Temp Pulse Resp BP Pulse Ox 36.7 C 82 15 148/68 H 92 03/03/17 08:00 03/03/17 08:00 03/03/17 08:00 03/03/17 10:02 03/03/17 08:00 Microbiology 02/28/17 16:55 Gram Stain - Final Thoracic Fluid - Aspirate Laboratory Results 03/03/17 05:30 03/02/17 03:45 03/02/17 03/03/17 03/04/17 05:59 05:59 05:59 Intake Total 1100 1300 Output Total 750 500 Balance 350 800 PT 15.9 SEC (12.0-15.0) H 02/28/17 14:55 INR 1.27 (0.83-1.16) H 02/28/17 14:55 - Physical Exam Constitutional: chronically ill appearing Eyes: PERRL Ears, Nose, Mouth, Throat: moist mucous membranes, hearing normal Cardiovascular: regular rate and rhythym Respiratory: no respiratory distress, reduced air movement (right base) Gastrointestinal: normoactive bowel sounds, soft, non-tender abdomen Skin: warm Musculoskeletal: full muscle strength Neurologic: AAOx3, CN II-XII Intact ICD10 Worksheet Patient Problems: Problems Problem Status Onset Dyspnea Acute Hypoxia Acute Pancreatic cancer Acute Pleural effusion Acute Cholecystitis Acute Complete heart block Acute Hypotension Acute Pancreatic mass Acute Pleural effusion Acute Pulmonary nodules Acute Renal failure Acute Respiratory failure Acute
--- NOTE | 2017-03-03 17:15 | SOAPPROG ---
SOAP Progress Note Assessment/Plan: A/P: * Dyspnea: likely multifactorial (right pleural effusion, ?pneumonitis). Improved symptomatically (thoracentesis, ?contribution of steroids), but still with significant oxygen requirement. * Right malignant effusion: known malignant effusion since dx, loculated. * Metastatic pancreatic cancer: progressive disease by CT. Consider second- line chemo (liposomal irinotecan + 5-FU/LV) vs. best supportive care depending on functional status after this hospitalization. 03/03/17 17:14 Subjective: Happy to have CT out. O: VS reviewed, AF, 97% on 6L. Gen: NAD. Lungs: reduced BS R base. CV: no edema. Laboratory Tests 03/02/17 03/03/17 03:45 05:30 WBC 7.97 Hgb 7.0 L Plt Count 144 L Sodium 137 Potassium 4.5 Chloride 109 Carbon Dioxide 22 BUN 20 Creatinine 0.9 Glucose 163 H Total Bilirubin 0.5 AST 36 ALT 23 Alkaline Phosphatase 141 H Objective: Vital Signs Temp Pulse Resp BP Pulse Ox 36.6 C 73 12 139/70 H 97 03/03/17 15:49 03/03/17 15:49 03/03/17 15:49 03/03/17 15:49 03/03/17 15:49 Microbiology 02/28/17 16:55 Gram Stain - Final Thoracic Fluid - Aspirate Body Fluid Culture - Final Laboratory Results 03/03/17 05:30 03/02/17 03:45 03/02/17 03/03/17 03/04/17 05:59 05:59 05:59 Intake Total 1100 1300 Output Total 750 500 520 Balance 350 800 -520 PT 15.9 SEC (12.0-15.0) H 02/28/17 14:55 INR 1.27 (0.83-1.16) H 02/28/17 14:55 ICD10 Worksheet Patient Problems: Problems Problem Status Onset Dyspnea Acute Hypoxia Acute Pancreatic cancer Acute Pleural effusion Acute Cholecystitis Acute Complete heart block Acute Hypotension Acute Pancreatic mass Acute Pleural effusion Acute Pulmonary nodules Acute Renal failure Acute Respiratory failure Acute
[2017-03-03] MEDS: QUEtiapine FUMARATE 300 MG TAB PO SCH (20:45)
[2017-03-04] MEDS: HYDROCODONE/APAP 5/325 TAB PO PRN (00:59)
[2017-03-04 05:46] LABS: HEMATOCRIT 24.8 % (40.0-51.0); HEMOGLOBIN 8.2 g/dL (13.7-17.5); MEAN CELL HEMOGLOBIN 30.5 pg (27.9-34.1); MEAN CELL HEMOGLOBIN CONCENTR. 33.1 g/dL (32.4-36.7); MEAN CELL VOLUME 92.2 fL (81.5-99.8); RED BLOOD CELL COUNT 2.69 10^6/uL (4.40-6.38); RED CELL DISTRIBUTION WIDTH 17.6 % (11.5-15.2)
[2017-03-04] MEDS: MULTIVITAMINS 1 EACH TAB PO SCH (08:58)
[2017-03-04] MEDS: morphINE SR 30 MG TAB PO SCH (08:58)
[2017-03-04] MEDS: PANTOPRAZOLE SODIUM 40 MG TAB PO SCH (08:58)
[2017-03-04] MEDS: predniSONE 20 MG TAB PO SCH (08:58)
[2017-03-04] MEDS: VENLAFAXINE XR 150 MG CAP PO SCH (08:58)
[2017-03-04] MEDS: ENOXAPARIN 40 MG/0.4 ML SYR SC SCH (08:59)
[2017-03-04 09:15] VITALS: RESP 16
[2017-03-04] MEDS: LORazepam 1 MG TAB PO SCH (11:50)
--- NOTE | 2017-03-04 11:58 | HOSPPROG ---
Hospitalist Progress Note Assessment/Plan: #Acute blood loss anemia: H/H stable after 1 unit RBC. FOBT negative #Acute on chronic hypoxemic resp failure: improving. Multifactorial with effusion, +/- chemo-induced pneumonitis, possible PNA. Diastolic dysfunction on echo -empiric abx. Will DC with pred taper fro 1 week and 2 more days of abx #Indeterminate trop: suspect demand with acute illness. Denies CP. TTE without wall motion abnormalities #Metastatic pancreatic cancer: chemo on hold at this point #Depression: home meds #Compensated cirrhosis: stable #Diet: regular #DVT ppx: SCDs #Disp: DC today Subjective: feeling slighltly stronger today. No SOB Objective: Vital Signs Temp Pulse Resp BP Pulse Ox 36.4 C 76 16 149/72 H 95 03/04/17 08:45 03/04/17 08:57 03/04/17 08:45 03/04/17 08:58 03/04/17 08:45 Microbiology 02/28/17 16:55 Gram Stain - Final Thoracic Fluid - Aspirate Body Fluid Culture - Final Laboratory Results 03/04/17 05:40 03/02/17 03:45 03/03/17 03/04/17 03/05/17 05:59 05:59 05:59 Intake Total 1300 1350 Output Total 500 520 Balance 800 830 PT 15.9 SEC (12.0-15.0) H 02/28/17 14:55 INR 1.27 (0.83-1.16) H 02/28/17 14:55 - Physical Exam Constitutional: chronically ill appearing, cachectic Eyes: PERRL Ears, Nose, Mouth, Throat: moist mucous membranes Cardiovascular: regular rate and rhythym Respiratory: reduced air movement (decreased BS at bases) ICD10 Worksheet Patient Problems: Problems Problem Status Onset Cholecystitis Acute Complete heart block Acute Respiratory failure Acute Pancreatic mass Acute Pulmonary nodules Acute Pleural effusion Acute Pancreatic cancer Acute Renal failure Acute Hypoxia Acute Hypotension Acute Pleural effusion Acute Dyspnea Acute
[2017-03-04 13:16] VITALS: BP 135/69; PULSE 84; TEMP 98.1
--- NOTE | 2017-03-04 13:27 | SOAPPROG ---
SOAP Progress Note Assessment/Plan: A/P: * Dyspnea: likely multifactorial (right pleural effusion, ?pneumonitis). Improved symptomatically (thoracentesis, ?contribution of steroids), oxygen requirement improving. - taper steroids * Right malignant effusion: known malignant effusion since dx, loculated. * Metastatic pancreatic cancer: progressive disease by CT. Consider second- line chemo (liposomal irinotecan + 5-FU/LV) vs. best supportive care depending on functional status after this hospitalization. Plan d/c today. He likely already has f/u appt scheduled later this week. Will confirm. d/w Dr. Waldron. 03/04/17 13:25 Subjective: No complaints. Breathing better. O: VS reviewed. O2 requirement down to 4L. Gen: NAD, A&O. CV: no edema. Lungs: few crackles on left, reduced BS right base. Abd: soft, NT. Laboratory Tests 03/02/17 03/04/17 03:45 05:40 WBC 5.89 Hgb 8.2 L Plt Count 134 L Sodium 137 Potassium 4.5 Chloride 109 Carbon Dioxide 22 BUN 20 Creatinine 0.9 Glucose 163 H Total Bilirubin 0.5 AST 36 ALT 23 Alkaline Phosphatase 141 H Objective: Vital Signs Temp Pulse Resp BP Pulse Ox 36.7 C 84 16 135/69 H 93 03/04/17 11:30 03/04/17 11:30 03/04/17 11:30 03/04/17 11:30 03/04/17 11:30 Microbiology 02/28/17 16:55 Gram Stain - Final Thoracic Fluid - Aspirate Body Fluid Culture - Final Laboratory Results 03/04/17 05:40 03/02/17 03:45 03/03/17 03/04/17 03/05/17 05:59 05:59 05:59 Intake Total 1300 1350 Output Total 500 520 Balance 800 830 PT 15.9 SEC (12.0-15.0) H 02/28/17 14:55 INR 1.27 (0.83-1.16) H 02/28/17 14:55 ICD10 Worksheet Patient Problems: Problems Problem Status Onset Dyspnea Acute Hypoxia Acute Pancreatic cancer Acute Pleural effusion Acute Cholecystitis Acute Complete heart block Acute Hypotension Acute Pancreatic mass Acute Pleural effusion Acute Pulmonary nodules Acute Renal failure Acute Respiratory failure Acute
[2017-03-04 13:39] VITALS: O2SAT 83
--- NOTE | 2017-03-04 16:45 | SOAPPROG ---
SOAP Progress Note Assessment/Plan: Assessment: 66 year old known to me for pancreatic cancer s/p chest tube placement for effusion - DC home today Keep dressing in place until Sat F/U with Larisa Mcdowell PAC 1 week with chest x ray S: Feeling better changed dressing (was saturated before I came. Dry now) Plan: 03/02/17 07:45 03/02/17 13:26 03/03/17 08:01 03/04/17 16:44 03/04/17 16:44 Objective: Vital Signs Temp Pulse Resp BP Pulse Ox 36.7 C 84 16 135/69 H 83 L 03/04/17 11:30 03/04/17 11:30 03/04/17 11:30 03/04/17 11:30 03/04/17 13:39 Microbiology 02/28/17 16:55 Gram Stain - Final Thoracic Fluid - Aspirate Body Fluid Culture - Final Laboratory Results 03/04/17 05:40 03/02/17 03:45 03/03/17 03/04/17 03/05/17 05:59 05:59 05:59 Intake Total 1300 1350 Output Total 500 520 Balance 800 830 PT 15.9 SEC (12.0-15.0) H 02/28/17 14:55 INR 1.27 (0.83-1.16) H 02/28/17 14:55 ICD10 Worksheet Patient Problems: Problems Problem Status Onset Dyspnea Acute Hypoxia Acute Pancreatic cancer Acute Pleural effusion Acute Cholecystitis Acute Complete heart block Acute Hypotension Acute Pancreatic mass Acute Pleural effusion Acute Pulmonary nodules Acute Renal failure Acute Respiratory failure Acute
--- NOTE | 2017-03-04 19:10 | GDS ---
[f rep st] DISCHARGE SUMMARY DISCHARGE DIAGNOSES: 1. Acute blood loss anemia. 2. Acute on chronic hypoxemic respiratory failure. 3. Indeterminate troponin. 4. Metastatic prostate cancer. 5. Depression. 6. Compensated cirrhosis. 7. Pleural effusion. 8. Type 2 diabetes. 9. Carotid stenosis. 10. Complete heart block, status post pacemaker. 11. Depression. 12. Hypertension. 13. Obstructive sleep apnea on CPAP. PROCEDURES: Chest tube placement. HISTORY OF PRESENT ILLNESS: The patient is a 66-year-old male with history of metastatic prostate cancer with prior malignant pleural effusion, presenting with shortness of breath. Last chemotherapy was 2-3 weeks prior to admission. Up until a couple days ago, he had not been using any oxygen; however, recently he has had to use 3 due to shortness of breath. He is dyspneic specifically with walking. He complains of a dry cough. No fevers, chills, or sweats. No nausea, vomiting, or diarrhea. No myalgias. No sick contacts. No hematemesis , hematochezia, or melena. HOSPITAL COURSE BY PROBLEM: 1. Acute hypoxemic respiratory failure: Likely multifactorial with a recurrent malignant pleural effusion, evidence of ground-glass opacities which suggest chemotherapy-induced pneumonitis, as well as possible pneumonia. The patient was empirically treated with Levaquin, will complete a total of 7 days. He was treated on a high-dose steroid and transitioned to a prednisone taper. Will follow up with Oncology. 2. Pleural effusion: This was drained the day of admission and then reaccumulated very quickly, with a significant drop in his H and H. Concern was for hemothorax. Surgery was consulted and placed a chest tube with drainage of blood. At this point, he is stable. He will follow up with Dr. Whyte next week. 3. Indeterminate troponin. Suspect demand in setting of acute illness. He denies any chest pain. EKG was nonischemic. TTE with no wall motion abnormalities. 4. Acute blood loss anemia secondary to hemothorax. He was transfused 1 unit of blood, and H and H have remained stable. 5. Metastatic prostate cancer. Dr. Colmenares is his primary oncologist, who will see him as an outpatient. 6. Depression. Continue home medications. 7. Compensated cirrhosis. 8. Diabetes. Diet controlled. 9. Chronic pain secondary to malignancy. MS Contin and hydrocodone. DISPOSITION: Patient stable for discharge. NEW MEDICATIONS: Levaquin and prednisone. FOLLOW UP: 1. Dr. Whyte for followup of chest tube, pleural effusion. 2. Dr. Geetha Colmenares, oncology. Time spent on DC: 50 min spent counseling family on FU, dressing changes and coordinating care. /[id number]/MODL MTDD
== END 2017-03-04 17:16 | disposition home or self-care (01) | DRG 189 ==
LOC: OBSVTOIN 12:48 → F2N 13:32 → F1N 03-04 00:32
PROVIDERS: ADMIT Internal Medicine; ATTEND Internal Medicine
PROC: 0W993ZX Drainage of Right Pleural Cavity, Percutaneous Approach, Diagnostic (ICD-10-PCS; 2017-02-28)
PROC: 0W9900Z Drainage of Right Pleural Cavity with Drainage Device, Open Approach (ICD-10-PCS; principal; 2017-03-01)
PROC: 30233N1 Transfusion of Nonautologous Red Blood Cells into Peripheral Vein, Percutaneous Approach (ICD-10-PCS; 2017-03-03)
DX: J96.21 Acute and chronic respiratory failure with hypoxia (principal); D62 Acute posthemorrhagic anemia; J91.0 Malignant pleural effusion; J94.2 Hemothorax; C61 Malignant neoplasm of prostate; J70.4 Drug-induced interstitial lung disorders, unspecified; T45.1X5A Adverse effect of antineoplastic and immunosuppressive drugs, initial encounter; F32.9 Major depressive disorder, single episode, unspecified; K74.60 Unspecified cirrhosis of liver; E11.9 Type 2 diabetes mellitus without complications; I10 Essential (primary) hypertension; G47.33 Obstructive sleep apnea (adult) (pediatric); G89.29 Other chronic pain; Z95.0 Presence of cardiac pacemaker; Z85.07 Personal history of malignant neoplasm of pancreas
CPT/HCPCS: 97116-GP; 97161-GP; 97165-GO; 97530-GP; G8978-GP-CJ; G8979-GP-CI; G8987-GO-CK; G8988-GO-CJ; J1642; J1650; J1956; P9016; Q9967

== ENCOUNTER 2017-03-15 09:57 | Emergency (ER) | payer OTHER ==
[2017-03-15 10:18] VITALS: TEMP 98.1
--- NOTE | 2017-03-15 10:20 | EDPHY ---
H & P Stated Complaint: Low O2 level at [facility]; ?pleural effusion Time Seen by Provider: 03/15/17 10:20 - Personal History Current Tetanus Diphtheria and Acellular Pertussis (TDAP): Yes - Medical/Surgical History Hx Asthma: No Hx Chronic Respiratory Disease: Yes Hx Diabetes: Yes Hx Cardiac Disease: Yes Hx Renal Disease: No Hx Cirrhosis: No Hx Alcoholism: Yes Hx HIV/AIDS: No Hx Splenectomy or Spleen Trauma: No Other PMH: pneumonia. hyperlipidemia. sleep apnea, torn retina, hip replacemtnt , tonsils, hernia repair, alcoholism, diabetes M II,. pancreatic CA , fatty liver, cholecystectomy, lung ca - Social History Smoking Status: Former smoker Constitutional: Initial Vital Signs Temperature (C) 36.7 C 03/15/17 10:00 Heart Rate 109 H 03/15/17 10:00 Respiratory Rate 20 03/15/17 10:00 Blood Pressure 147/82 H 03/15/17 10:00 O2 Sat (%) 84 L 03/15/17 10:00 O2 Delivery Mode Nasal Cannula O2 (L/minute) 4 Allergies/Adverse Reactions: No Known Allergies Allergy (Verified 08/03/16 18:02) Home Medications: Medication Instructions Recorded QUEtiapine FUMARATE [Seroquel 300 mg PO HS 05/18/16 300mg (*)] Venlafaxine Xr [Effexor Xr] 150 mg PO DAILY 05/18/16 Hydrocodone/Acetaminophen [[place] 1 each PO Q4HRS PRN 02/28/17 5/325 (*)] LORazepam [Ativan (*)] 1 mg PO BID@11,21 02/28/17 Multivitamins [Multivitamin (*)] 1 each PO DAILY 02/28/17 Omeprazole [Prilosec 20 mg] 40 mg PO DAILY 02/28/17 amLODIPine BESYLATE [Norvasc 10 mg 10 mg PO DAILY 02/28/17 (*)] morphINE SR [MS Contin/Oramorph SR 30 mg PO BID 02/28/17 30 mg (*)] levOFLOXACIN [levAQUIN (*)] 750 mg PO DAILY AT 10AM #2 tab 03/04/17 predniSONE 60 mg PO DAILY #13 tablet 03/04/17 Medical Decision Making - Diagnostics Imaging Results: Imaging Impressions Chest X-Ray 03/15/17 10:32 Impression: 1. Stable subpulmonic right pleural effusion. 2. Slight increase in left pleural effusion. Imaging: I viewed and interpreted images myself ED Course/Re-evaluation: CHIEF COMPLAINT: Dyspnea, hypoxemia HISTORY OF PRESENT ILLNESS: The patient is a 66 y/o male, with a history of metastatic pancreatic cancer, arriving with his complaining of worsening dyspnea over the last week. He has additional history that includes cirrhosis, type 2 diabetes, and prior pleural effusions with a recent thoracentesis last week. He was admitted for 5 days on 02/28/17 for hypoxemia and received a chest tube during that visit. He went to a follow up appointment with [facility] today, but they referred him on to the ED due to hypoxemia with an SpO2 of 67%. The patient states his dyspnea has been progressively worsening since his last thoracentesis. He denies associated fevers or chills. He normally requires 2 LPM O2 at home to maintain saturation. REVIEW OF SYSTEMS: A 10 point review of systems was performed and is negative with the exception of the elements mentioned in the history of present illness. PHYSICAL EXAM: HR, BP, O2 Sat, RR. Temp noted General Appearance: Alert, well hydrated, slow, and cachectic-appearing. Head: Atraumatic without scalp tenderness or obvious injury Eyes: Pupils equal, round, reactive to light and accommodation, EOMI, no trauma , no injection. Ears: Clear bilaterally, no perforation, normal landmarks Nose: Atraumatic, no rhinorrhea, clear. Throat: Mucus membranes moist. Neck: Supple, nontender, no lymphadenopathy. Respiratory: No retractions, no distress, no wheezes, and no accessory muscle use. Diminished breath sounds on right side. Bandage over chest tube site on right posterior chest. Cardiovascular: Regular rate and rhythm, no murmurs, rubs, or gallops. Good capillary refill all extremities. Gastrointestinal: Abdomen is soft, nontender, non-distended, no masses, no rebound, no guarding, no peritoneal signs. Musculoskeletal: Normal active ROM of all extremities, atraumatic. Neurological: Alert, appropriate, and interactive. Nonfocal neuro exam. Skin: No rashes, good turgor, no nodules on palpation. Past medical history: Metastatic pancreatic cancer, prior pleural effusions presumed malignant, cirrhosis, carotid stenosis, complete heart block, depression, hypertension, LUCINA on CPAP Past surgical history: Pacemaker, thoracentesis, hip surgery, hernia repair, cholecystectomy, tonsillectomy Family history: noncontributory Social history: at bedside. Smoker. PCP: Dr. Man in [place], oncologist: Dr. Colmenares at [facility] Prior medical records reviewed including 5-day admission 02/28/17 for hypoxemia. DIAGNOSTICS/PROCEDURES/CRITICAL CARE TIME: Chest x-ray: left pleural effusion similar to previous, unchanged right subpleural effusion. DIFFERENTIAL DIAGNOSIS: The differential diagnosis for the patient's shortness of breath and hypoxemia included but was not limited to malignant pleural effusion, pneumonia, myocardial infarction, acute mountain sickness, high altitude pulmonary edema, congestive heart failure, and pulmonary embolus. MEDICAL DECISION MAKING: This is a chronically ill-appearing 66 y/o male with metastatic cancer and recent history of thoracentesis for presumed malignant pleural effusion. He was referred here today due to hypoxemia while at his follow up [facility] appointment. He has significantly diminished breath sounds on the right side. He does not appear systemically infectious. He is afebrile. Plan for labs, chest x-ray, and oncology consult. 1105: Consulted with Dr. Flores, oncology. He agrees this is a hospice case and will arrange outpatient palliative care consult. We will do a limited work up here to see if another thoracentesis is needed. Pleural effusions are largely unchanged. Labs are not significantly out-of- range given patient's cancer status. Patient will be discharged home with instructions to increase O2 use as needed for palliative care and follow up with oncology in the next few days. He agrees with this plan. - Data Points Laboratory Results: Laboratory Results 03/15/17 11:15 03/15/17 11:15 03/15/17 03/15/17 03/15/17 11:15 11:15 11:15 WBC 12.33 10^3/uL H 10^3/uL (3.80-9.50) RBC 3.18 10^6/uL L 10^6/uL (4.40-6.38) Hgb 9.8 g/dL L g/dL (13.7-17.5) Hct 30.1 % L % (40.0-51.0) MCV 94.7 fL fL (81.5-99.8) MCH 30.8 pg pg (27.9-34.1) MCHC 32.6 g/dL g/dL (32.4-36.7) RDW 18.0 % H % (11.5-15.2) Plt Count 149 10^3/uL L 10^3/uL (150-400) MPV 9.9 fL fL (8.7-11.7) Neut % (Auto) 86.3 % H % (39.3-74.2) Lymph % (Auto) 6.4 % L % (15.0-45.0) [place] % (Auto) 5.6 % % (4.5-13.0) Eos % (Auto) 1.0 % % (0.6-7.6) Baso % (Auto) 0.2 % L % (0.3-1.7) Nucleat RBC Rel Count 0.0 % % (0.0-0.2) Absolute Neuts (auto) 10.64 10^3/uL H 10^3/uL (1.70-6.50) Absolute Lymphs (auto) 0.79 10^3/uL L 10^3/uL (1.00-3.00) Absolute Monos (auto) 0.69 10^3/uL 10^3/uL (0.30-0.80) Absolute Eos (auto) 0.12 10^3/uL 10^3/uL (0.03-0.40) Absolute Basos (auto) 0.03 10^3/uL 10^3/uL (0.02-0.10) Absolute Nucleated RBC 0.00 10^3/uL 10^3/uL (0-0.01) Immature Gran % 0.5 % % (0.0-1.1) Immature Gran # 0.06 10^3/uL 10^3/uL (0.00-0.10) PT 13.9 SEC SEC (12.0-15.0) INR 1.08 (0.83-1.16) APTT 34.2 SEC SEC (23.0-38.0) Sodium 133 mEq/L L mEq/L (134-144) Potassium 3.3 mEq/L L mEq/L (3.5-5.2) Chloride 109 mEq/L mEq/L (97-110) Carbon Dioxide 17 mEq/l L mEq/l (22-31) Anion Gap 7 mEq/L L mEq/L (8-16) BUN 9 mg/dL mg/dL (7-23) Creatinine 0.6 mg/dL L mg/dL (0.7-1.3) Estimated GFR > 60 Glucose 105 mg/dL H mg/dL (70-100) Calcium 7.4 mg/dL L mg/dL (8.5-10.4) NT-Pro-B Natriuret Pep 894 pg/mL H pg/mL (0-125) Departure - Departure Disposition: Home, Routine, Self-Care Clinical Impression: Chronic hypoxemic respiratory failure, Recurrent pleural effusion on left, chronic Pancreatic cancer Qualifiers: Pancreatic malignancy location: unspecified Qualified Code(s): C25.9 - Malignant neoplasm of pancreas, unspecified Condition: Fair Instructions: Using Oxygen at Home (ED), Pleural Effusion (ED) Additional Instructions: 1. Increase home oxygen use to maintain oxygen saturation above 92%. 2. Follow up with your oncologist in the next few days. Referrals: Chitra Man MD [Primary Care Provider] - As per Instructions Geetha Colmenares MD [Medical Doctor] - As per Instructions Report Scribed for: Chito Mortensen Report Scribed by: Loan Chavez Date of Report: 03/15/17 Time of Report: 10:50
[2017-03-15 11:30] LABS: % IMMATURE GRANULYOCYTES 0.5 % (0.0-1.1); ABSOLUTE IMMATURE GRANULOCYTES 0.06 10^3/uL (0.00-0.10); ADD DIFF? NO; ADD MORPH? NO; ADD SCAN? NO; ATYPICAL LYMPHOCYTE FLAG 10 (0-99); FRAGMENT RBC FLAG 0 (0-99); HEMATOCRIT 30.1 % (40.0-51.0); HEMOGLOBIN 9.8 g/dL (13.7-17.5); LEFT SHIFT FLG 0 (0-99); LIPEMIA HEMOLYSIS FLAG 80 (0-99); MEAN CELL HEMOGLOBIN 30.8 pg (27.9-34.1); MEAN CELL HEMOGLOBIN CONCENTR. 32.6 g/dL (32.4-36.7); MEAN CELL VOLUME 94.7 fL (81.5-99.8); MEAN PLATELET VOLUME 9.9 fL (8.7-11.7); PLATELET CLUMPS FLAG 0 (0-99); PLATELET COUNT 149 10^3/uL (150-400); RED BLOOD CELL COUNT 3.18 10^6/uL (4.40-6.38)
[2017-03-15 11:42] LABS: INR 1.08 (0.83-1.16); PROTIME(PATIENT) 13.9 SEC (12.0-15.0)
[2017-03-15 11:43] LABS: ANION GAP 7 mEq/L (8-16); APTT 34.2 SEC (23.0-38.0); CALCIUM 7.4 mg/dL (8.5-10.4); CARBON DIOXIDE 17 mEq/l (22-31); CHLORIDE 109 mEq/L (97-110); CREATININE 0.6 mg/dL (0.7-1.3); GLOMERULAR FILTRATION RATE > 60; GLUCOSE 105 mg/dL (70-100); POTASSIUM 3.3 mEq/L (3.5-5.2); SODIUM 133 mEq/L (134-144)
[2017-03-15 12:09] VITALS: BP 137/75; PULSE 99; RESP 22; O2SAT 96
== END 2017-03-15 12:38 | disposition home or self-care (01) ==
DX: C25.9 Malignant neoplasm of pancreas, unspecified (principal); J96.11 Chronic respiratory failure with hypoxia; J90 Pleural effusion, not elsewhere classified; E11.9 Type 2 diabetes mellitus without complications; Z85.07 Personal history of malignant neoplasm of pancreas; Z85.118 Personal history of other malignant neoplasm of bronchus and lung; Z87.891 Personal history of nicotine dependence

== ENCOUNTER 2017-03-18 13:19 | Inpatient (IN) | payer OTHER ==
--- NOTE | 2017-03-18 13:36 | EDPHY ---
H & P Stated Complaint: o2 sats to decrease overnight, currently hypoxic, hx ca HPI/ROS: HPI CHIEF COMPLAINT: Hypoxia, generalized weakness HISTORY OF PRESENT ILLNESS: This patient is 66-year-old male significant past medical history for metastatic pancreatic cancer, presents emergency room with altered mental status, generalized weakness, hypoxia. Oxygen saturation noted to be 65% at triage. Patient tells me over the past few days he has been getting progressively worsening shortness of breath. No fever. Has had chills. Family at bedside. Was recently hospitalized for acute on chronic hypoxic respiratory failure which was multifactorial. Chemotherapy-induced pneumonitis , pneumonia, malignant pleural effusion. Patient presents emergency room tachypneic, respiratory distress, hypoxic in the 60s, does not appear well. Family is at bedside. He does have a MOST form: That shows comfort measures only. No CPR. No intubation. I did expect extensively at length with family about patient's wishes and what they would like done emergently here in the emergency room they are okay with BiPAP this time blood work x-ray and workup comfort measures. Past Medical History: Metastatic pancreatic cancer, liver cirrhosis, hyperlipidemia, diabetes, acute on chronic hypoxic respiratory failure, malignant pleural effusion, prostate cancer Past Surgical History: Hip surgery, tonsillectomy, cholecystectomy Social History: Denies current use of drugs alcohol tobacco products Family History: Noncontributory ROS REVIEW OF SYSTEMS: A comprehensive 10 point review of systems is otherwise negative aside from elements mentioned in the history of present illness. Exam Constitutional appears unwell, cachectic, malnourished, triage nursing summary reviewed, vital signs reviewed, awake/alert. Eyes normal conjunctivae and sclera, EOMI, PERRLA. HENT normal inspection, atraumatic, moist mucus membranes, no epistaxis, neck supple/ no meningismus, no raccoon eyes. Respiratory respiratory distress, tachypnea, decreased air movement bilaterally , decreased breath sounds bilaterally Cardiovascular tachycardia, regular rhythm, no murmur, no edema, distal pulses normal. Gastrointestinal distended abdomen, mild tenderness. Genitourinary no CVA tenderness. Musculoskeletal no midline vertebral tenderness, full range of motion, no calf swelling, no tenderness of extremities, no meningismus, good pulses, neurovascularly intact. Skin pink, warm, & dry, no rash, skin atraumatic. Neurologic awake, alert and oriented x 3, AAOx3, moves all 4 extremities equally, motor intact, sensory intact, CN II-XII intact, normal cerebellar, normal vision, normal speech. Psychiatric normal mood/affect. Heme/Lymph/Immune no lymphadenopathy. Differential Diagnosis: Includes but is not limited to in a particular order, acute on chronic hypoxic respiratory failure, respiratory distress, pneumonia, pleural effusion, malignant pleural effusion, pneumonitis, sepsis, electrolyte disturbance, ACS Medical Decision Making: Plan for this patient IV establishment, blood work, chest x-ray, BiPAP breathing machine, ABG, lactic acid, blood cultures. Supportive care comfort measures, will order patient IV morphine for acute pain control. BiPAP for helping with his respiratory distress to make her more comfortable. Re-evaluation: EKG interpretation by me on record in [facility] system. Impression time of EKG 1341, this is a ventricularly paced rhythm noted ST depression V1, V2, V3 this is new from his previous EKGs most likely ischemic changes on his EKG due to severe profound hypoxia upon arrival to the emergency room. Critical Care: Total Critical Care Time Spent Managing this Patient: 65 Minutes. This time was spent Exclusively with this patient. This Care was exclusive of procedures. The Organ System/life at risk was multifactorial, respiratory, metabolic, cardiac This Patient was in Critical Condition because respiratory distress profound hypoxia 1354: The will try to make this patient as comfortable as possible. Use of BiPAP for comfort, morphine for pain control. Supportive measures. 1433: Re-evaluation this patient's patient is much more comfortable on BiPAP. Current vitals heart rate 105, blood pressure 103/71, pulse ox 100%. ED x-ray chest one view shows opacification diffuse throughout lung titus worse on the right than left, bilateral pleural effusions. Concerning for pneumonia. 1434; re-evaluation at this time this patient does tell me that he feels better on BiPAP. He is requesting more pain medicine for generalized discomfort. This patient does appear to have pneumonia on his chest x-ray I have ordered broad-spectrum antibiotics, IV vancomycin IV Zosyn. 1443: Spoke with Dr. Dennis agrees to admit this patient reason for admission severe hypoxic respiratory failure. Pneumonia. Metastatic pancreatic cancer. Respiratory distress. Severe hypoxia. Source: Patient - Personal History Current Tetanus/Diphtheria Vaccine: Yes Current Tetanus Diphtheria and Acellular Pertussis (TDAP): Yes - Medical/Surgical History Hx Asthma: No Hx Chronic Respiratory Disease: Yes Hx Diabetes: Yes Hx Cardiac Disease: Yes Hx Renal Disease: No Hx Cirrhosis: No Hx Alcoholism: Yes Hx HIV/AIDS: No Hx Splenectomy or Spleen Trauma: No Other PMH: pneumonia. hyperlipidemia. sleep apnea, torn retina, hip replacemtnt , tonsils, hernia repair, alcoholism, diabetes M II,. pancreatic CA , fatty liver, cholecystectomy, lung ca - Social History Smoking Status: Former smoker Constitutional: Initial Vital Signs Temperature (C) 36.8 C 03/18/17 13:28 Heart Rate 115 H 03/18/17 13:28 Respiratory Rate 25 H 03/18/17 13:28 Blood Pressure 90/70 L 03/18/17 13:28 O2 Sat (%) 68 L 03/18/17 13:28 O2 Delivery Mode Bi-Pap Allergies/Adverse Reactions: No Known Allergies Allergy (Verified 08/03/16 18:02) Home Medications: Medication Instructions Recorded QUEtiapine FUMARATE [Seroquel 300 mg PO HS 05/18/16 300mg (*)] Venlafaxine Xr [Effexor Xr] 150 mg PO DAILY 05/18/16 Hydrocodone/Acetaminophen [[place] 1 each PO Q4HRS PRN 02/28/17 5/325 (*)] LORazepam [Ativan (*)] 1 mg PO BID@,02/28/17 Multivitamins [Multivitamin (*)] 1 each PO DAILY 02/28/17 Omeprazole [Prilosec 20 mg] 40 mg PO DAILY 02/28/17 amLODIPine BESYLATE [Norvasc 10 mg 10 mg PO DAILY 02/28/17 (*)] morphINE SR [MS Contin/Oramorph SR 30 mg PO BID 02/28/17 30 mg (*)] Aspirin [Aspirin 81mg (*)] 81 mg PO DAILY 03/18/17 Metoprolol Tartrate [Lopressor 25 25 mg PO BID 03/18/17 mg (*)] Ondansetron Odt [Zofran Odt 4 mg 8 mg PO Q8HRS PRN 03/18/17 (*)] Medical Decision Making - Diagnostics Imaging Results: Imaging Impressions Chest X-Ray 03/18/17 13:33 Impression: Increased principally perihilar opacities which could be related to pulmonary edema, pneumonia, treatment response, or other etiology, with stable small effusions and atelectasis. - Data Points Laboratory Results: Laboratory Results 03/18/17 13:49 03/18/17 13:49 03/18/17 03/18/17 03/18/17 13:49 13:49 13:49 WBC RBC Hgb Hct MCV MCH MCHC RDW Plt Count MPV Neut % (Auto) Lymph % (Auto) [place] % (Auto) Eos % (Auto) Baso % (Auto) Nucleat RBC Rel Count Absolute Neuts (auto) Absolute Lymphs (auto) Absolute Monos (auto) Absolute Eos (auto) Absolute Basos (auto) Absolute Nucleated RBC Immature Gran % Immature Gran # PT 14.5 SEC SEC (12.0-15.0) INR 1.14 (0.83-1.16) APTT 36.0 SEC SEC (23.0-38.0) VBG Lactic Acid 1.4 mmol/L mmol/L (0.7-2.1) Sodium 134 mEq/L mEq/L (134-144) Potassium 3.4 mEq/L L mEq/L (3.5-5.2) Chloride 105 mEq/L mEq/L (97-110) Carbon Dioxide 19 mEq/l L mEq/l (22-31) Anion Gap 10 mEq/L mEq/L (8-16) BUN 9 mg/dL mg/dL (7-23) Creatinine 1.0 mg/dL mg/dL (0.7-1.3) Estimated GFR > 60 Glucose 132 mg/dL H mg/dL (70-100) Calcium 8.1 mg/dL L mg/dL (8.5-10.4) Magnesium 2.0 mg/dL mg/dL (1.6-2.3) Total Bilirubin 0.7 mg/dL mg/dL (0.1-1.4) Conjugated Bilirubin 0.3 mg/dL mg/dL (0.0-0.5) Unconjugated Bilirubin 0.4 mg/dL mg/dL (0.0-1.1) AST 42 IU/L IU/L (17-59) ALT 26 IU/L IU/L (21-72) Alkaline Phosphatase 270 IU/L H IU/L (38-126) Creatine Kinase 31 IU/L IU/L (0-224) CK-MB (CK-2) Fraction 0.50 ng/mL ng/mL (0-3.19) Troponin I 0.079 ng/mL H ng/mL (0-0.034) NT-Pro-B Natriuret Pep 884 pg/mL H pg/mL (0-125) Total Protein 6.2 g/dL L g/dL (6.3-8.2) Albumin 2.8 g/dL L g/dL (3.5-5.0) Lipase 11.0 IU/L L IU/L (23-300) 03/18/17 13:49 WBC 9.00 10^3/uL 10^3/uL (3.80-9.50) RBC 3.07 10^6/uL L 10^6/uL (4.40-6.38) Hgb 9.4 g/dL L g/dL (13.7-17.5) Hct 28.9 % L % (40.0-51.0) MCV 94.1 fL fL (81.5-99.8) MCH 30.6 pg pg (27.9-34.1) MCHC 32.5 g/dL g/dL (32.4-36.7) RDW 17.6 % H % (11.5-15.2) Plt Count 121 10^3/uL L 10^3/uL (150-400) MPV 9.5 fL fL (8.7-11.7) Neut % (Auto) 88.7 % H % (39.3-74.2) Lymph % (Auto) 5.4 % L % (15.0-45.0) [place] % (Auto) 4.4 % L % (4.5-13.0) Eos % (Auto) 0.8 % % (0.6-7.6) Baso % (Auto) 0.4 % % (0.3-1.7) Nucleat RBC Rel Count 0.0 % % (0.0-0.2) Absolute Neuts (auto) 7.97 10^3/uL H 10^3/uL (1.70-6.50) Absolute Lymphs (auto) 0.49 10^3/uL L 10^3/uL (1.00-3.00) Absolute Monos (auto) 0.40 10^3/uL 10^3/uL (0.30-0.80) Absolute Eos (auto) 0.07 10^3/uL 10^3/uL (0.03-0.40) Absolute Basos (auto) 0.04 10^3/uL 10^3/uL (0.02-0.10) Absolute Nucleated RBC 0.00 10^3/uL 10^3/uL (0-0.01) Immature Gran % 0.3 % % (0.0-1.1) Immature Gran # 0.03 10^3/uL 10^3/uL (0.00-0.10) PT INR APTT VBG Lactic Acid Sodium Potassium Chloride Carbon Dioxide Anion Gap BUN Creatinine Estimated GFR Glucose Calcium Magnesium Total Bilirubin Conjugated Bilirubin Unconjugated Bilirubin AST ALT Alkaline Phosphatase Creatine Kinase CK-MB (CK-2) Fraction Troponin I NT-Pro-B Natriuret Pep Total Protein Albumin Lipase Medications Given: Discontinued Medications Sodium Chloride (Ns) 1,000 mls @ 0 mls/hr IV ONCE ONE PRN Reason: Wide Open Stop: 03/18/17 13:50 Last Admin: 03/18/17 13:58 Dose: 1,000 mls Morphine Sulfate (Morphine) 4 mg IVP EDNOW ONE Stop: 03/18/17 13:50 Last Admin: 03/18/17 14:17 Dose: 4 mg Ondansetron HCl (Zofran) 4 mg IVP EDNOW ONE Stop: 03/18/17 13:53 Last Admin: 03/18/17 14:18 Dose: 4 mg Departure - Departure [place] [place] Clinical Impression: Hypoxia, Respiratory distress Pneumonia Qualifiers: Pneumonia type: due to unspecified organism Laterality: bilateral Lung location : unspecified part of lung Qualified Code(s): J18.9 - Pneumonia, unspecified organism Condition: Critical Referrals: Chitra Man MD [Primary Care Provider] - As per Instructions
--- NOTE | 2017-03-18 13:43 | CPEKG ---
Heart Rate: 113 RR Interval: 531 P-R Interval: 104 QRSD Interval: 138 QT Interval: 392 QTC Interval: 538 P [place]: 252 QRS [place]: -59 T Wave [place]: 103 EKG Severity - ABNORMAL ECG - EKG Impression: VENTRICULAR-PACED COMPLEXES Electronically Signed By: Lacho Raya 18-Mar-2017 20:45:49
[2017-03-18] MEDS ORDERED: NS 1,000 ML IV ONE (13:49)
[2017-03-18] MEDS ORDERED: ONDANSETRON 4 MG/2 ML VIAL IVP ONE (13:52)
[2017-03-18 13:58] LABS: % IMMATURE GRANULYOCYTES 0.3 % (0.0-1.1); ABSOLUTE IMMATURE GRANULOCYTES 0.03 10^3/uL (0.00-0.10); ADD DIFF? NO; ADD MORPH? NO; ADD SCAN? NO; ATYPICAL LYMPHOCYTE FLAG 20 (0-99); FRAGMENT RBC FLAG 0 (0-99); HEMATOCRIT 28.9 % (40.0-51.0); HEMOGLOBIN 9.4 g/dL (13.7-17.5); LEFT SHIFT FLG 0 (0-99); LIPEMIA HEMOLYSIS FLAG 80 (0-99); MEAN CELL HEMOGLOBIN 30.6 pg (27.9-34.1); MEAN CELL HEMOGLOBIN CONCENTR. 32.5 g/dL (32.4-36.7); MEAN CELL VOLUME 94.1 fL (81.5-99.8); MEAN PLATELET VOLUME 9.5 fL (8.7-11.7); PLATELET CLUMPS FLAG 10 (0-99); PLATELET COUNT 121 10^3/uL (150-400); RED BLOOD CELL COUNT 3.07 10^6/uL (4.40-6.38); RED CELL DISTRIBUTION WIDTH 17.6 % (11.5-15.2)
[2017-03-18 14:17] LABS: ALANINE AMINOTRANSFERASE 26 IU/L (21-72); ALBUMIN 2.8 g/dL (3.5-5.0); ALKALINE PHOSPHATASE 270 IU/L (38-126); ANION GAP 10 mEq/L (8-16); ASPARTATE AMINOTRANSFERASE 42 IU/L (17-59); BILIRUBIN,TOTAL 0.7 mg/dL (0.1-1.4); BILIRUBIN-CONJUGATED 0.3 mg/dL (0.0-0.5); BILIRUBIN-UNCONJUGATED 0.4 mg/dL (0.0-1.1); CALCIUM 8.1 mg/dL (8.5-10.4); CARBON DIOXIDE 19 mEq/l (22-31); CHLORIDE 105 mEq/L (97-110); GLOMERULAR FILTRATION RATE > 60; GLUCOSE 132 mg/dL (70-100); POTASSIUM 3.4 mEq/L (3.5-5.2); SODIUM 134 mEq/L (134-144); TOTAL PROTEIN 6.2 g/dL (6.3-8.2)
[2017-03-18 14:26] LABS: INR 1.14 (0.83-1.16); PROTIME(PATIENT) 14.5 SEC (12.0-15.0)
[2017-03-18 14:28] LABS: TROPONIN I 0.079 ng/mL (0-0.034)
[2017-03-18] MEDS ORDERED: VANCOMYCIN HCL/NORMAL SALINE 250 ML IV ONE (14:32)
[2017-03-18] MEDS ORDERED: PIPERACILLIN/TAZO 4.5 GM/DEX 100 ML IV ONE (14:32)
[2017-03-18] MEDS ORDERED: LIDOCAINE/PRILOCAINE 1 EACH CRTUBE TP ONE (14:59)
[2017-03-18 15:09] LABS: PCO2 34 mmHg (34-38); PO2 242 mmHg (65-75)
[2017-03-18 15:10] LABS: BICARBONATE 19 mEq/L (22-26); BIPAP YES; EXP PRESSURE 7; INSP PRESSURE 14; MEASURED OXYGEN SATURATION 100 % (92-95); O2 CONCENTRATIION 100 % (0-100); P/F RATIO 242 RATIO; TCO2 20 mEq/L (23-27)
[2017-03-18] MEDS ORDERED: HYDROCODONE/APAP 5/325 TAB PO PRN (16:27)
[2017-03-18] MEDS ORDERED: PROTOCOL POTASSIUM 1 DOSE MISC PRN (16:28)
[2017-03-18] MEDS ORDERED: IPRATROPIUM/ALBUTEROL 3 ML DEYVIAL IH PRN (16:33)
[2017-03-18] MEDS ORDERED: ONDANSETRON 4 MG/2 ML VIAL IVP PRN (16:33)
[2017-03-18] MEDS ORDERED: ACETAMINOPHEN 500 MG TAB PO PRN (16:33)
[2017-03-18] MEDS ORDERED: oxyCODONE IR 5 MG TAB PO PRN (16:33)
[2017-03-18] MEDS ORDERED: IOPAMIDOL (ISOVUE 370) 100 ML BTL IV ONE ×2 (17:12→19:31)
--- NOTE | 2017-03-18 17:23 | GHP ---
[f rep st] HISTORY AND PHYSICAL DATE OF ADMISSION: 03/18/2017 CHIEF COMPLAINT: Shortness of breath. HISTORY: The patient is a 66-year-old male with metastatic pancreatic cancer, who was just discharg ed from the hospital 2 weeks ago. During that hospitalization, he had his malignant pleural effusio n drained. This was complicated by a hemothorax after thoracentesis, which required a chest tube. That chest tube is now out. He had pulmonary infiltrates, which were felt to be most likely chemo i nduced pneumonitis, and he was started on high-dose steroids, which were tapered. There is a though t of possible pneumonia, and he got 7 days of Levaquin. He discharged home on 3 L of oxygen, and woodall s remained stable since discharge until last night. Last night, he started to have a little wheezin g, but went to bed otherwise unremarkably. He woke up this morning with acute onset of worsening sh ortness of breath. His checked on home O2 saturation monitor, and it was only 72% on his usual 3 L. There has been no chest pain. There has been no leg edema. He has had increasing abdominal distention and abdominal pain. He was due for an outpatient CT scan of the abdomen and [facility] his malignancy. He has not received any chemo since his last h ospitalization. There has been no cough or fever. He got IV vancomycin and IV Zosyn in the emergen cy room. PAST MEDICAL HISTORY: 1. Metastatic pancreatic cancer, progressive despite chemotherapy, with malignant loculated pleural effusion. 2. Diabetes. 3. Alcohol cirrhosis. 4. Complete heart block, status post pacemaker. 5. Obstructive sleep apnea, on CPAP. PAST SURGICAL HISTORY: 1. Cholecystectomy. 2. Hip surgery. MEDICATIONS: Please see computer record for full detailed list. ALLERGIES: No known drug allergies. SOCIAL HISTORY: No smoking. Previous history of alcohol abuse, but he quit 15 years ago. He lives with his . He has a MOLST form, and and him request DNR. REVIEW OF SYSTEMS: Complete review of systems obtained. Review of systems is negative regarding co nstitutional, HEENT, GI, pulmonary, cardiovascular, , hematology, skin, musculoskeletal, endocrine , psych, except for positives/negatives as listed in HPI. FAMILY HISTORY: Reviewed and noncontributory to presenting complaint. PHYSICAL EXAMINATION: GENERAL: Well-developed, well-nourished male, in no acute distress. VITAL S IGNS: Temperature is 36.8, pulse 115, respiration 25, blood pressure 90/70, saturating 68% on 3 L. EYE EXAMINATION: Normal conjunctivae. Pupils round, reactive to light. ENT: Normal ears, nose. Hearing intact. Normal teeth. Oropharynx moist. NECK: Trachea midline. No thyromegaly. CHEST: Normal respiratory effort. LUNGS: Clear to auscultation bilaterally. CARDIOVASCULAR: Tachycard ic. No murmur. No lower extremity edema. ABDOMEN: Distended, very tense pain without rebound or guarding diffusely. I suspect hepatomegaly. SKIN: Warm, dry, intact without rash. MUSCULOSKELETAL: No cyanosis or clubbing. Strength 5/5 upp er and lower extremities. NEURO: Cranial nerves intact. Normal sensation to light touch. PSYCH: Alert and oriented x3. Normal affect. Normal judgment. Normal memory. LABORATORY DATA: White count 9.0, hematocrit 28.9, platelets 121, sodium 134, potassium 3.4, chlori de 105, bicarb 19, BUN 9, creatinine 1.0, glucose 132. LFTs are negative. Troponin 0.079, BNP is 8 84, albumin 2.8, lactate is 1.4. EKG is paced. Chest x-ray shows some increasing bilateral infiltrates. No massive effusion. ABG s hows a pH of 7.37, pCO2 of 20, PO2 of 242. Old chart has been reviewed extensively regarding recent hospital events. These were summarized under HPI. ASSESSMENT AND PLAN: 1. Acute on chronic respiratory failure. He has acute worsening of hypoxemia this morning. Now st abilized on BiPAP. He does have some slight increased bilateral infiltrates. Differential diagnosi s is progression of malignancy versus chemotherapy-induced pneumonitis versus pneumonia versus pulmo nary embolus versus malignant effusion. We will recheck a CT scan of the chest. He got IV vancomyc in and IV Zosyn, but I am not convinced that he is infected, as he has no other signs of this. I wi ll check a procalcitonin. Consider further antibiotics depending on CT scan results. Could also co nsider resuming high-dose steroids. 2. Metastatic pancreatic cancer. This is progressive. I have spoken with Oncology. They will see him in the morning. 3. Increasing abdominal distention. We will check a CT scan of the abdomen and pelvis now, as it w as scheduled as an outpatient tomorrow anyway, and he does having increasing symptoms and increasing distention, which may be compromising his respiratory excursion. 4. Borderline troponin. This is probably strain due to hypoxemia. I do not a need for further eugenia luation. 5. Cirrhosis. This is due to his previous alcohol use, probably complicating the situation. 6. Complete heart block with pacemaker. CODE STATUS: DNR. ADMISSION STATUS: 1. We will admit to inpatient, as he is critically ill. Going to step-down. 2. DVT prophylaxis. He is high risk. We will place him on subcu Lovenox. 3. Critical care time spent is 1 hour. /[id number]/MODL
[2017-03-18] MEDS ORDERED: POTASSIUM CL 10 MEQ TAB PO ONE (21:03)
[2017-03-18] MEDS: LORazepam 1 MG TAB PO SCH (21:30)
[2017-03-18] MEDS: QUEtiapine FUMARATE 300 MG TAB PO SCH (21:30)
[2017-03-18] MEDS: METOPROLOL TARTRATE 25 MG TAB PO SCH (21:30)
[2017-03-18] MEDS: morphINE SR 30 MG TAB PO SCH (21:31)
[2017-03-18 21:40] LABS: POTASSIUM 3.3 mEq/L (3.5-5.2)
[2017-03-18 21:54] LABS: TROPONIN I 0.061 ng/mL (0-0.034)
[2017-03-19] MEDS: PIPERACILLIN/TAZO 4.5 GM/DEX 100 ML IV SCH ×3 (05:47→21:00)
[2017-03-19] MEDS: NS 1,000 ML IV SCH ×2 (05:47→17:54)
[2017-03-19 06:00] LABS: % IMMATURE GRANULYOCYTES 0.4 % (0.0-1.1); ABSOLUTE IMMATURE GRANULOCYTES 0.02 10^3/uL (0.00-0.10); ADD DIFF? NO; ADD MORPH? NO; ADD SCAN? NO; ATYPICAL LYMPHOCYTE FLAG 0 (0-99); FRAGMENT RBC FLAG 0 (0-99); HEMATOCRIT 24.3 % (40.0-51.0); HEMOGLOBIN 7.8 g/dL (13.7-17.5); LEFT SHIFT FLG 0 (0-99); LIPEMIA HEMOLYSIS FLAG 80 (0-99); MEAN CELL HEMOGLOBIN 30.8 pg (27.9-34.1); MEAN CELL HEMOGLOBIN CONCENTR. 32.1 g/dL (32.4-36.7); MEAN PLATELET VOLUME 9.4 fL (8.7-11.7); PLATELET CLUMPS FLAG 0 (0-99); PLATELET COUNT 105 10^3/uL (150-400); RED BLOOD CELL COUNT 2.53 10^6/uL (4.40-6.38); RED CELL DISTRIBUTION WIDTH 17.4 % (11.5-15.2)
[2017-03-19 06:19] LABS: ALANINE AMINOTRANSFERASE 24 IU/L (21-72); ALBUMIN 2.2 g/dL (3.5-5.0); ALKALINE PHOSPHATASE 196 IU/L (38-126); ANION GAP 7 mEq/L (8-16); ASPARTATE AMINOTRANSFERASE 36 IU/L (17-59); BILIRUBIN,TOTAL 0.8 mg/dL (0.1-1.4); BILIRUBIN-CONJUGATED 0.5 mg/dL (0.0-0.5); BILIRUBIN-UNCONJUGATED 0.3 mg/dL (0.0-1.1); CARBON DIOXIDE 21 mEq/l (22-31); CHLORIDE 109 mEq/L (97-110); CREATININE 0.8 mg/dL (0.7-1.3); GLOMERULAR FILTRATION RATE > 60; GLUCOSE 76 mg/dL (70-100); POTASSIUM 3.6 mEq/L (3.5-5.2); SODIUM 137 mEq/L (134-144)
[2017-03-19] MEDS: VENLAFAXINE XR 150 MG CAP PO SCH (08:57)
[2017-03-19] MEDS: PANTOPRAZOLE SODIUM 40 MG TAB PO SCH (08:57)
[2017-03-19] MEDS: ASPIRIN 81 MG CHEWABLE TAB PO SCH (08:57)
[2017-03-19] MEDS: METOPROLOL TARTRATE 25 MG TAB PO SCH ×2 (08:57→20:55)
[2017-03-19] MEDS: morphINE SR 30 MG TAB PO SCH ×2 (08:57→20:55)
[2017-03-19] MEDS: ENOXAPARIN 40 MG/0.4 ML SYR SC SCH (09:09)
[2017-03-19] MEDS ORDERED: POTASSIUM CL 10 MEQ TAB PO ONE ×3 (10:40→19:29)
--- NOTE | 2017-03-19 11:30 | HOSPPROG ---
Hospitalist Progress Note Assessment/Plan: 66-year-old man with metastatic pancreatic cancer is admitted with increasing shortness of breath. CT scan reveals enlarging left pleural effusion and loculated right pleural effusion. He was recently admitted here for malignant effusions which were tapped and complicated by hemothorax requiring chest tube placement. Overnight he has done well and does feel less short of breath currently. Patient discussed in multi-disciplinary rounds. # metastatic prostate cancer complicated by pleural effusions. Has increased acute hypoxic respiratory failure. No evidence of bacterial infection, other etiology for lung issues could include pneumonitis from drug sensitivity, however given the enlarging left pleural effusion he could benefit from pleurodesis to prevent recurrence. Unfortunately pt is poor candidate for VATS. Could do palliative thoracentesis. * Consult general surgery regarding pleurodesis, Dr. Whyte to see and will talk with family re: options * Continue supportive care * Appreciate Pulmonary consult * Discussed with Oncology. Pt is hospice candidate and likely not tolerate VATS , will order hospice consult. * Will give one dose of lasix to see if any of respiratory failure is due to pulm edema. # diabetes: Continue to monitor blood sugars # history of alcoholic cirrhosis # history of complete heart block status post pacemaker placement # obstructive sleep apnea on CPAP at night # DVT prophylaxis: Currently on Lovenox dispo: Pt and family to meet with hospice tomorrow Subjective: Feels like breathing is better. It has been bad for at least few weeks. No chest pain Objective: Vital Signs Temp Pulse Resp BP Pulse Ox 36.5 C 92 16 124/60 H 98 03/19/17 08:00 03/19/17 08:50 03/19/17 08:50 03/19/17 08:00 03/19/17 08:50 Laboratory Results 03/19/17 05:35 03/19/17 05:35 03/18/17 03/19/17 03/20/17 05:59 05:59 05:59 Intake Total 50 Output Total 600 Balance -550 PT 14.5 SEC (12.0-15.0) 03/18/17 13:49 INR 1.14 (0.83-1.16) 03/18/17 13:49 - Physical Exam Constitutional: chronically ill appearing, uncomfortable Eyes: PERRL, EOMI Ears, Nose, Mouth, Throat: moist mucous membranes Cardiovascular: regular rate and rhythym, no murmur, rub, or gallop Respiratory: no respiratory distress, reduced air movement, inspiratory crackles Gastrointestinal: normoactive bowel sounds, soft, non-tender abdomen Genitourinary: no bladder fullness Skin: warm Musculoskeletal: generalized weakness Neurologic: No facial droop Psychiatric: interacting appropriately ICD10 Worksheet Patient Problems: Problems Problem Status Onset Cholecystitis Acute Complete heart block Acute Respiratory failure Acute Pancreatic mass Acute Pulmonary nodules Acute Pleural effusion Acute Pancreatic cancer Acute Renal failure Acute Hypoxia Acute Hypotension Acute Pleural effusion Acute Dyspnea Acute Hypoxia Acute Respiratory distress Acute Pneumonia Acute
[2017-03-19] MEDS: LORazepam 1 MG TAB PO SCH ×2 (13:04→20:55)
--- NOTE | 2017-03-19 13:57 | GCON ---
[f rep st] CONSULTATION PULMONARY CONSULTATION DATE OF CONSULTATION: 03/19/2017 HISTORY OF PRESENT ILLNESS: The patient is a 66-year-old male with a history of known metastatic pancreatic cancer, including pulmonary metastases with malignant and recurrent pleural effusion. He was recently seen at [facility] about 2 weeks ago, where he had his effusion drained, complicated by a hemothorax which did require a chest tube. This was eventually removed and he did require another thoracentesis on 03/12/2017, but was relatively stable after that. It should be pointed out that he has had chronic pulmonary infiltrates, thought to be related to chemotherapy-induced pneumonitis at his last admission, and he was started on high dose steroids, which were tapered fairly quickly. He also has a history of cryptogenic organizing pneumonia in 2010 that was treated at [facility], but eventually he was discharged from that facility. In any case, he was discharged from the previous hospitalization on 3 L of oxygen, and last night he went to bed feeling reasonably well, but woke up with acute onset of shortness of breath. His oxygen saturation was only 72% on a home monitor, and he was brought to the emergency department. He also had increasing abdominal distention and pain. There was some concern for pneumonia, and he was given IV vancomycin and Zosyn and placed on BiPAP, which he tolerated well overnight. His vital signs remained stable and he was able to remove the BiPAP this morning without difficulty, though does have a high oxygen requirement. Of note, a CT scan did show increase in pleural effusion on the left, a large loculated effusion on the right, and while Radiology suggested that his infiltrates were essentially unchanged, it was my estimation that they were actually slightly worse. They also noted a slight increase in multiple pulmonary nodules compared to his most recent CT of just a couple of weeks ago. REVIEW OF SYSTEMS: He did not have a productive cough, fevers, chills, or sweats, and no hemoptysis coming into this admission. PAST MEDICAL HISTORY: Includes: 1. The pancreatic cancer as described above. 2. Recurrent malignant pleural effusion. 3. Depression. 4. Diabetes. 5. Complete heart block with a pacemaker. 6. Hypertension. 7. Obstructive sleep apnea and on home CPAP. 8. Hemothorax, as described above. 9. The remote BOOP. 10. Stroke in the past. 11. Gastroesophageal reflux disease. 12. Hyperlipidemia. 13. Depression. 14. Carotid artery stenosis. PAST SURGICAL HISTORY: Includes a left hip replacement, inguinal hernia repair , laparoscopic cholecystectomy, pacemaker, retinal detachment, and tonsillectomy. SOCIAL HISTORY: He is a former smoker, no significant alcohol currently, and no recreational drug use. FAMILY HISTORY: Includes coronary artery disease, stroke, diabetes, hypertension, hyperlipidemia, and multiple myeloma. ALLERGIES: None. CURRENT MEDICATIONS: Include [place], DuoNeb, Norvasc, aspirin, Ativan, Lopressor , morphine, MS Contin, Zofran, Zosyn, Seroquel, vancomycin, Effexor. PHYSICAL EXAMINATION: VITAL SIGNS: He was afebrile, with a blood pressure 124/ 60, heart rate of 85, oxygen saturation was 97% on 3 L briefly, but I believe he had to go back to BiPAP. GENERAL: At the time of my exam, he was awake and alert and he was able to speak, though it is difficult to understand him via his BiPAP, but was not using accessory muscles for breathing. HEENT: Pupils were equally round and reactive to light. Nonicteric and noninjected. Mucous membranes are moist without erythema or exudate. NECK: Supple without adenopathy. LUNGS: Breath sounds were coarse bilaterally, with no obvious wheezing. HEART: Sounds were distant, but seemed to have a regular rate and rhythm. ABDOMEN: Soft, but mildly diffusely tender, without obvious hepatosplenomegaly. EXTREMITIES: No clubbing, cyanosis, or edema. NEUROLOGIC : Nonfocal. OBJECTIVE DATA: Includes the CT scan as reported above. His white count on admission was 9, hematocrit 28.9, platelets of 121. His INR was 1.14. His basic metabolic panel was fairly unremarkable. LFTs were normal with the exception of alk phos of 270, but a normal total bilirubin of 0.7. Troponin was 0.079 and has decreased to 0.052 with no intervention. BNP was 884. Albumin 2.8. Procalcitonin was 0.8. ASSESSMENT AND PLAN: Acute on chronic hypoxemia. I think it is difficult to determine the exact etiology here, and there may be multiple contributors. In terms of pneumonia, with a procalcitonin of 0.8, I think that makes bacterial pneumonia possible, but seems unlikely, particularly given the distribution of his infiltrates on his CT scan, and I am not certain that ongoing antibiotics are necessary at this time. The other issues on his differential include chemotherapy-induced pneumonitis. It seems very unlikely since he has not had any chemo since his last hospital admission, and it is not exactly clear. The sudden onset makes it less likely. Congestive heart failure is certainly a possibility. He had an echo at his last admission with ejection fraction of 55% , as well as diastolic dysfunction, but his BNP of 884 does suggest that is a distinct possibility. As malignant effusion is probably a contributor, it certainly looks worse on the left now compared to previous CT, though there is a much larger effusion on the right, and other possibilities would include a cryptogenic organizing pneumonia which could present in this fashion, though the pleural effusion is uncommon in that disorder. Finally, aspiration may be an issue. In order to help tease these out, I suggest that we try him with some diuretics such as Lasix 40 mg IV b.i.d., and see what his response is. If he fails to respond, we could consider doing a VATS with 2 goals in mind; one, to do a lung biopsy to help determine the etiology, and two, to perform a pleurodesis to help prevent recurrence of effusion. Identifying cryptogenic organizing pneumonia or bronchiolitis obliterans with organizing pneumonia on a biopsy would argue strongly for a much more prolonged course of a high-dose steroid such as 1 mg/kg/day for at least 6-8 weeks. Finally, a swallow evaluation would likely be useful since he may be aspirating, and that would certainly explain an acute change like this that would cause an aspiration pneumonitis. Finally, another consideration would be whether or not this patient really is in favor of aggressive therapy, and may be a hospice candidate. We will be notifying Dr. Colmenares of his admission today to explore that in more detail. /[id number]/MODL MTDD
[2017-03-19] MEDS: VANCOMYCIN HCL/NORMAL SALINE 250 ML IV SCH (15:48)
--- NOTE | 2017-03-19 15:57 | GCON ---
[f rep st] CONSULTATION REFERRING PHYSICIAN: Reena Piedra MD REASON FOR CONSULTATION: Patient known to [facility] with metastatic pancreatic adenocarcinoma. Last on chemo in January of 2017. He follows with Dr. Colmenares. He is admitted for acute on chronic respiratory failure. HISTORY OF PRESENT ILLNESS: Steve is a 66-year-old gentleman with metastatic pancreatic adenocarcinoma. He was just discharged from the hospital 2 weeks ago. During that hospitalization, he had a malignant pleural effusion that was drained. This was complicated by hemothorax after thoracentesis which required a chest tube. That chest tube is now out. He had full pulmonary infiltrates on this admission felt most likely chemo-induced pneumonitis and was on high- dose steroids which were tapered. Also, there was a thought of possible pneumonia, and he had 7 days of Levaquin. He was discharged home on 3 L of oxygen and remained stable until the night before admission which was 2016. At that time, reports increased oxygen requirements with a little bit wheezing. The patient has also had more confusion. O2 sats at home were 72 % on normal 3 L. He was due for outpatient CT scans for restaging. On admission to the hospital, chest x-ray showed increased principally perihilar opacities which could be related to pulmonary edema, pneumonia, treatment response or other etiology with stable small pleural effusions, atelectasis. CT chest showed no evidence of PE, evidence of metastatic disease with minimal increase in size in pulmonary nodules, moderate left pleural effusion which is increased slightly and a loculated right pleural effusion which is similar with compressive atelectasis, right lower lobe. He also has scattered ground-glass opacity and interstitial prominence with similar pattern. The patient is on 15 L non-rebreather mask. I will note that a CA-19- 9 most recently was 1175 and previously was 471. LABORATORY DATA: Today show a white blood cell count of 5.2, hemoglobin 7.8, platelet count of a 105,000, INR 1.14. Sodium 137, CO2 21, BUN 8, creatinine 0.8, calcium 8. T bilirubin 0.8, alkaline phosphatase 196. Troponin was slightly elevated at 0.79 at its highest. BNP was 884. Lipase 11. Total protein 6.2. REVIEW OF SYSTEMS: reports the patient is sleeping most of the time. Performance status is approximately 3. He has been more confused. He denies pain or neurologic symptoms but has profound weakness and weight loss. PAST MEDICAL HISTORY: 1. Metastatic pancreatic cancer. Last chemotherapy with Gemzar/Abraxane 2016. Multiple recent admissions for pleural effusions. 2. Diabetes. 3. Alcoholic cirrhosis. 4. Complete heart block, status post pacemaker. 5. Obstructive sleep apnea, on CPAP. 6. History of bronchiolitis. PAST SURGICAL HISTORY: Cholecystectomy and hip surgery. MEDICATIONS: Have been reviewed in EMR. ALLERGIES: No known drug allergies. SOCIAL HISTORY: No smoking, previous history of alcohol abuse. FAMILY HISTORY: Noncontributory. LABS AND IMAGING: As discussed per HPI. ASSESSMENT AND PLAN: A 66-year-old gentleman with metastatic pancreatic adenocarcinoma who is admitted for acute on chronic respiratory failure and confusion. 1. Acute on chronic respiratory failure, likely multifactorial, but definitely one of the main issues is right loculated pleural effusion and left pleural effusion. The pleural effusions have not changed dramatically from previous admission. In addition, discussed his case with Dr. Whyte who feels the patient would not tolerate a VATS and it would likely be detrimental to him. is also against a PleurX cath and certainly PleurX seems concerning on the right because this effusion is loculated, and it may not drain appropriately. Dr. Whyte may recommend thoracentesis or nothing as we have recommended hospice from an Oncology standpoint. He remains on 15 L non-rebreather mask. Will try to optimize his oxygen status before discharge to hospice. He is getting a trial of Lasix today to see if this helps. He did have an elevated BNP on admission. Other possibilities include aspiration or recurrent bronchiolitis. He is currently being covered for pneumonia or infectious etiology. He is not currently on high-dose steroids and he has no evidence of pulmonary embolus. 2. Stage IV metastatic pancreatic adenocarcinoma. Performance status now 3. Long discussion with today as well as his primary oncologist, Geetha Colmenares. Do not feel further chemotherapy would be of benefit and would expose him to more toxicity without quality of life. Therefore we are recommending hospice. would prefer this to be done at home (or transitional) which we can arrange. 3. Chemotherapy-induced anemia. Consider blood transfusion for hemoglobin less than 7, but if we are moving in the hospice direction this may not be appropriate. 4. Thrombocytopenia. This is mild. Will continue to monitor. 5. Abdominal distention. CT abdomen and pelvis shows slight increasing lymph nodes. He also does have ascites. He has a history of cirrhosis. The ascites is mild and do not think it is contributing to respiratory compromise. No paracentesis indicated. Will continue to follow along in the hospital as plans for further care are arranged. /[id number]/MODL MTDD
--- NOTE | 2017-03-19 16:32 | WOCRNPDOC ---
WOCRN Advanced Assessment Note - Skin Integrity Problem, Advanced Assess Right Upper Medial Back Dressing Type: Open to Air Exudate Characteristic(s): None Integumentary Issue Intervention: Lotion/Cream Applied (Skin Repair cream) Kaur Wound Tissue: Intact Kaur Wound Swelling: None Wound Bed Constitution: Scab Wound Edges: Epithelizing Site Odor: None Skin Integrity Problem Comment: reports that tape at back caused skin injuries while at home. Scattered sites across right back extending toward lateral flank range in size from approx 1/5 cm l x 1 cm w and less, and are in varying states of healing, from scabbed to re-epithelializing. No erythema, induration, or c/o tenderness. Applied Skin Repair Cream, which staff may continue to use, consistent with skin care protocol. Discussed with CHADD Flood. Bridge of Nose Dressing Type: Mepilex Transfer Dressing Description: Intact Exudate Amount: Scant Exudate Color: Yellow, Red Exudate Characteristic(s): Serosanguinous Integumentary Issue Intervention: Visualized Under Dressing Kaur Wound Tissue: Raw Kaur Wound Swelling: Mild Wound Bed Constitution: Smooth Tissue Wound Edges: Irregular Site Odor: None Site Measurement - Head-to-Toe Length X Width X Depth (cm): 1 x 0.5 x 0.2 Skin Integrity Problem Comment: Skin tear at bridge of nose, may be 2/2 to combination of contributiing factors: 15 years (per 's report) on CPAP at home, eyeglasses rest precisely on this location, and has recently worn a mask for delivery of O2 in hospital. Epidermal flap is visible, folded over at distal margin. Subcutaneous tissue is exposed by tear, but was protected by placement of Transfer foam by CHADD Flood. Recommended addition of Silvasorb gel to site on subsequent dressing changes, to continued protection by use of foam.
[2017-03-19] MEDS ORDERED: FUROSEMIDE 20 MG/2 ML VIAL IVP ONE (18:01)
[2017-03-19] MEDS: QUEtiapine FUMARATE 300 MG TAB PO SCH (20:55)
--- NOTE | 2017-03-19 21:40 | SOAPPROG ---
SOAP Progress Note Assessment/Plan: Assessment: 66 year old well known to me, progressive cancer. Recurrent pleural effusions and hypoxia and confusion I removed the suture from his posterior chest I spent 20 minutes with the family I discussed that he had difficulty with his previous chemo and disease is progressing Even if he would tolerate additional chemo, I am not sure that it would change his prognosis I do think that hospice is appropriate I was not able to give the family an estimate of his time left Plan: 03/19/17 21:36 Objective: Vital Signs Temp Pulse Resp BP Pulse Ox 36.9 C 100 20 131/76 H 95 03/19/17 19:21 03/19/17 19:21 03/19/17 19:21 03/19/17 19:21 03/19/17 19:21 Laboratory Results 03/19/17 05:35 03/19/17 05:35 03/18/17 03/19/17 03/20/17 05:59 05:59 05:59 Intake Total 50 2288 Output Total 600 350 Balance -550 1938 PT 14.5 SEC (12.0-15.0) 03/18/17 13:49 INR 1.14 (0.83-1.16) 03/18/17 13:49 ICD10 Worksheet Patient Problems: Problems Problem Status Onset Hypoxia Acute Pneumonia Acute Respiratory distress Acute Cholecystitis Acute Complete heart block Acute Dyspnea Acute Hypotension Acute Hypoxia Acute Pancreatic cancer Acute Pancreatic mass Acute Pleural effusion Acute Pleural effusion Acute Pulmonary nodules Acute Renal failure Acute Respiratory failure Acute
[2017-03-20] MEDS: NS 1,000 ML IV SCH (04:30)
[2017-03-20] MEDS: PIPERACILLIN/TAZO 4.5 GM/DEX 100 ML IV SCH ×2 (05:14→14:57)
[2017-03-20 06:07] LABS: POTASSIUM 3.7 mEq/L (3.5-5.2)
[2017-03-20] MEDS: METOPROLOL TARTRATE 25 MG TAB PO SCH ×2 (09:20→20:09)
[2017-03-20] MEDS: morphINE SR 30 MG TAB PO SCH ×2 (09:21→20:04)
--- NOTE | 2017-03-20 09:24 | PDINTPN ---
Technical Education Teacher Progress Note Assessment/Plan: Assessment/plan: 66 M with progressive metastatic pancreatic cancer including lung involvement and malignant effusion admitted with increasing oxygen requirement, possibly from PNA, increasing left effusion (has chronic loculated right effusion), and/ or volume overload. He has been treated with antibiotics and diuretics, but remains on high oxygen requirements, intermittently on bipap and 15 lpm oxymask during the day. Family discussion with oncology 03/19/17 resulted in plans for hospice. Also evaluated by Dr. Mcelroy for possible VATS pleurodesis, but patiet deemed too unstable for surgical intervention and family declined pleur-x catheter. * Hypoxic respiratory failure likely from a combination of all of the above. PE was ruled out on CTA, but his O2 requirement remains high. Would continue support and await hospice evaluation today. * Malignant pleural effusion- the right loculated effusion doesnt look much different than 2 weeks ago so is not likey a major player. The left effusion is clearly bigger but is only modest at best- a contributor but not in a major way. * PNA- infiltrates look similar in distribution, but more dense in my opinion. Since [employer] is in the differential, perhaps an empiric trial of steroids would diminish oxygen requirements and hopefully add to comfort for whatever time he has left. Will discuss on rounds today, but would use 1 mg/kg/day divided. I dont think a drug reaction (eg chemo) is driving his O2 requirements. * Objective: Vital Signs Temp Pulse Resp BP Pulse Ox 36.5 C 81 16 105/55 L 95 03/20/17 04:00 03/20/17 08:00 03/20/17 08:00 03/20/17 08:00 03/20/17 08:00 Laboratory Results 03/19/17 05:35 03/20/17 05:10 03/19/17 03/20/17 03/21/17 05:59 05:59 05:59 Intake Total 50 3796 Output Total 600 1150 Balance -550 2646 PT 14.5 SEC (12.0-15.0) 03/18/17 13:49 INR 1.14 (0.83-1.16) 03/18/17 13:49 Physical Exam - Physical Exam General Appearance: no apparent distress EENT: PERRL/EOMI Neck: supple Respiratory: decreased breath sounds, rales Cardiac/Chest: regular rate, rhythm Abdomen: soft, No distended Lymphatic: no adenopathy Extremities: No pedal edema Neuro/Psych: cognition abnormalities ICD10 Worksheet Patient Problems: Problems Problem Status Onset Hypoxia Acute Pneumonia Acute Respiratory distress Acute Cholecystitis Acute Complete heart block Acute Dyspnea Acute Hypotension Acute Hypoxia Acute Pancreatic cancer Acute Pancreatic mass Acute Pleural effusion Acute Pleural effusion Acute Pulmonary nodules Acute Renal failure Acute Respiratory failure Acute
[2017-03-20] MEDS: LORazepam 1 MG TAB PO SCH ×2 (11:22→20:04)
[2017-03-20] MEDS ORDERED: FUROSEMIDE 20 MG/2 ML VIAL IVP ONE (13:29)
--- NOTE | 2017-03-20 13:34 | HOSPPROG ---
Hospitalist Progress Note Assessment/Plan: 66-year-old man with metastatic pancreatic cancer is admitted with increasing shortness of breath. CT scan reveals enlarging left pleural effusion and loculated right pleural effusion. He was recently admitted here for malignant effusions which were tapped and complicated by hemothorax requiring chest tube placement. Overnight he has done well and does feel less short of breath currently. Patient discussed in multi-disciplinary rounds. The family has opted for Hospice Care. A consult is pending. He is feeling some SOB and has some volume overload. He has been getting IVF and this will be stopped. He is taking PO. Will also provide for Lasix x 1. BP has been soft and I will stop Amlodipine. # metastatic prostate cancer complicated by pleural effusions. Has increased acute hypoxic respiratory failure. No evidence of bacterial infection, other etiology for lung issues could include pneumonitis from drug sensitivity, however given the enlarging left pleural effusion he could benefit from pleurodesis to prevent recurrence. Unfortunately pt is poor candidate for VATS. Could do palliative thoracentesis. * Not a candidate for Pleurodesis, VATS. * Continue supportive care * Appreciate Pulmonary consult # diabetes: Continue to monitor blood sugars # history of alcoholic cirrhosis # history of complete heart block status post pacemaker placement # obstructive sleep apnea on CPAP at night # HTN: stop Amlodipine # DVT prophylaxis: Currently on Lovenox dispo: Pt and family to meet with hospice today Subjective: Will talk to Hospice today. First encounter with this patient. No CP , some cough, some SOB Objective: Vital Signs Temp Pulse Resp BP Pulse Ox 36.8 C 92 24 H 141/62 H 92 03/20/17 12:00 03/20/17 12:00 03/20/17 12:00 03/20/17 12:00 03/20/17 12:00 Laboratory Results 03/19/17 05:35 03/20/17 05:10 03/19/17 03/20/17 03/21/17 05:59 05:59 05:59 Intake Total 50 3796 Output Total 600 1150 Balance -550 2646 PT 14.5 SEC (12.0-15.0) 03/18/17 13:49 INR 1.14 (0.83-1.16) 03/18/17 13:49 - Physical Exam Constitutional: no apparent distress, chronically ill appearing Eyes: PERRL, EOMI Ears, Nose, Mouth, Throat: moist mucous membranes Cardiovascular: regular rate and rhythym, edema Respiratory: no respiratory distress, rhonchi Gastrointestinal: normoactive bowel sounds, soft, non-tender abdomen Skin: warm Neurologic: AAOx3 ICD10 Worksheet Patient Problems: Problems Problem Status Onset Hypoxia Acute Pneumonia Acute Respiratory distress Acute Cholecystitis Acute Complete heart block Acute Dyspnea Acute Hypotension Acute Hypoxia Acute Pancreatic cancer Acute Pancreatic mass Acute Pleural effusion Acute Pleural effusion Acute Pulmonary nodules Acute Renal failure Acute Respiratory failure Acute
--- NOTE | 2017-03-20 14:47 | SOAPPROG ---
<Larisa Mcdowell - Last Filed: 03/20/17 14:47> SOAP Progress Note Assessment/Plan: Assessment: 66yo M with pancreatic cancer, recurrent pleural effusions admitted with hypoxia and confusion Meeting with hospice today - Dr. sloan present for portion of the conversation No surgical interventions indicated at this time Objective: Vital Signs Temp Pulse Resp BP Pulse Ox 36.8 C 92 24 H 141/62 H 92 03/20/17 12:00 03/20/17 12:00 03/20/17 12:00 03/20/17 12:00 03/20/17 12:00 Laboratory Results 03/19/17 05:35 03/20/17 05:10 03/19/17 03/20/17 03/21/17 05:59 05:59 05:59 Intake Total 50 3796 Output Total 600 1150 Balance -550 2646 PT 14.5 SEC (12.0-15.0) 03/18/17 13:49 INR 1.14 (0.83-1.16) 03/18/17 13:49 ICD10 Worksheet Patient Problems: Problems Problem Status Onset Hypoxia Acute Pneumonia Acute Respiratory distress Acute Cholecystitis Acute Complete heart block Acute Dyspnea Acute Hypotension Acute Hypoxia Acute Pancreatic cancer Acute Pancreatic mass Acute Pleural effusion Acute Pleural effusion Acute Pulmonary nodules Acute Renal failure Acute Respiratory failure Acute <Inge Sloan - Last Filed: 03/20/17 15:29> SOAP Progress Note Assessment/Plan: Assessment: I spent over 30 minutes discussing his case with patient, family and hospice. I recommend that he be discharged to a transitional care facility because I am concerned that if he becomes confused, this will be difficult for his to handle at home. In terms of his pleural effusion options are 1) do nothing 2) See if thoracentesis improves oxygen saturation 3) If thoracentesis improves oxygen saturation AND will be transitional care, pleurx is a viable option (about 1 L was removed from his last tap - looks loculated on CT but surprisingly a lot of fluid was obtained). My concern is PleurX at home with this family even with nursing assistance. Plan: 03/20/17 15:21 Objective: Vital Signs Temp Pulse Resp BP Pulse Ox 36.8 C 92 24 H 141/62 H 92 03/20/17 12:00 03/20/17 12:00 03/20/17 12:00 03/20/17 12:00 03/20/17 12:00 Laboratory Results 03/19/17 05:35 03/20/17 05:10 03/19/17 03/20/17 03/21/17 05:59 05:59 05:59 Intake Total 50 3796 1086 Output Total 600 1150 Balance -550 2646 1086 PT 14.5 SEC (12.0-15.0) 03/18/17 13:49 INR 1.14 (0.83-1.16) 03/18/17 13:49
[2017-03-20] MEDS: VENLAFAXINE XR 150 MG CAP PO SCH (14:57)
[2017-03-20] MEDS: PANTOPRAZOLE SODIUM 40 MG TAB PO SCH (14:57)
[2017-03-20] MEDS: ENOXAPARIN 40 MG/0.4 ML SYR SC SCH (14:58)
[2017-03-20] MEDS: ASPIRIN 81 MG CHEWABLE TAB PO SCH (14:58)
[2017-03-20] MEDS ORDERED: LORazepam 1 MG TAB PO ONE (15:00)
[2017-03-20] MEDS: VANCOMYCIN HCL/NORMAL SALINE 250 ML IV SCH (17:07)
[2017-03-20] MEDS: QUEtiapine FUMARATE 300 MG TAB PO SCH (20:04)
[2017-03-21 00:19] VITALS: O2SAT 98
[2017-03-21 00:23] VITALS: TEMP 99.3
[2017-03-21 07:54] VITALS: BP 115/89; PULSE 105; RESP 18
[2017-03-21] MEDS: METOPROLOL TARTRATE 25 MG TAB PO SCH (08:02)
[2017-03-21] MEDS: morphINE SR 30 MG TAB PO SCH (08:02)
[2017-03-21] MEDS: LORazepam 1 MG TAB PO SCH (11:00)
--- NOTE | 2017-03-21 11:01 | SOAPPROG ---
SOAP Progress Note Assessment/Plan: Assessment: Sleeping comfortably this am. I did not wake him. Family not in room. No new changes in my recommendations from yesterday I recommend that he be discharged to a transitional care facility because I am concerned that if he becomes confused, this will be difficult for his to handle at home. In terms of his pleural effusion options are 1) do nothing 2) See if thoracentesis improves oxygen saturation 3) If thoracentesis improves oxygen saturation AND will be transitional care, pleurx is a viable option (about 1 L was removed from his last tap - looks loculated on CT but surprisingly a lot of fluid was obtained). My concern is PleurX at home with this family may be challenging even with nursing assistance. Plan: 03/20/17 15:21 03/21/17 10:59 Objective: Vital Signs Temp Pulse Resp BP Pulse Ox 37.4 C 105 H 18 115/89 H 98 03/21/17 07:50 03/21/17 07:50 03/21/17 07:50 03/21/17 07:50 03/21/17 03:55 Laboratory Results 03/19/17 05:35 03/20/17 05:10 03/20/17 03/21/17 03/22/17 05:59 05:59 05:59 Intake Total 3796 1566 Output Total 1150 1450 Balance 2646 116 PT 14.5 SEC (12.0-15.0) 03/18/17 13:49 INR 1.14 (0.83-1.16) 03/18/17 13:49 ICD10 Worksheet Patient Problems: Problems Problem Status Onset Hypoxia Acute Pneumonia Acute Respiratory distress Acute Cholecystitis Acute Complete heart block Acute Dyspnea Acute Hypotension Acute Hypoxia Acute Pancreatic cancer Acute Pancreatic mass Acute Pleural effusion Acute Pleural effusion Acute Pulmonary nodules Acute Renal failure Acute Respiratory failure Acute
[2017-03-21] MEDS ORDERED: LORazepam 2 MG/ML INJ IVP PRN (11:12)
--- NOTE | 2017-03-21 11:20 | HOSPPROG ---
Hospitalist Progress Note Assessment/Plan: 66-year-old man with metastatic pancreatic cancer admitted with increasing shortness of breath. CT scan reveals enlarging left pleural effusion and loculated right pleural effusion. He was recently admitted here for malignant effusions which were tapped and complicated by hemothorax requiring chest tube placement. Overnight he continues to have high oxygen requirements. Patient discussed in multi-disciplinary rounds. He has been evaluated by Oncology and a decision to proceed with Hospice has been made. He is awaiting placement to an inpatient facility. Today, will provide additional Lasix which he has required intermittently. Cont to hold Amlodipine. Provide BiPAP as needed. There is mention of possible palliative thoracentesis and we will wait for a final decision about this. # metastatic prostate cancer complicated by pleural effusions. Unfortunately pt is poor candidate for VATS. Could do palliative thoracentesis. * Not a candidate for Pleurodesis, VATS. * Continue supportive care * Appreciate Pulmonary, ONC consults # diabetes: Continue to monitor blood sugars # history of alcoholic cirrhosis # history of complete heart block status post pacemaker placement # obstructive sleep apnea on CPAP at night # HTN: stop Amlodipine # DVT prophylaxis: Currently on Lovenox dispo: Awaiting placement to inpatient hospice Subjective: Awake. Still feels SOB. No CP. He reports he is waiting on placement for Hospice. Objective: Vital Signs Temp Pulse Resp BP Pulse Ox 37.4 C 105 H 18 115/89 H 98 03/21/17 07:50 03/21/17 07:50 03/21/17 07:50 03/21/17 07:50 03/21/17 03:55 Laboratory Results 03/19/17 05:35 03/20/17 05:10 03/20/17 03/21/17 03/22/17 05:59 05:59 05:59 Intake Total 3796 1566 Output Total 1150 1450 Balance 2646 116 PT 14.5 SEC (12.0-15.0) 03/18/17 13:49 INR 1.14 (0.83-1.16) 03/18/17 13:49 - Physical Exam Constitutional: no apparent distress, chronically ill appearing Eyes: PERRL, EOMI Ears, Nose, Mouth, Throat: moist mucous membranes, hearing normal Cardiovascular: regular rate and rhythym Respiratory: rhonchi Gastrointestinal: normoactive bowel sounds, soft, non-tender abdomen Skin: warm, normal color Neurologic: AAOx3 Psychiatric: interacting appropriately, not anxious, not encephalopathic ICD10 Worksheet Patient Problems: Problems Problem Status Onset Hypoxia Acute Pneumonia Acute Respiratory distress Acute Cholecystitis Acute Complete heart block Acute Dyspnea Acute Hypotension Acute Hypoxia Acute Pancreatic cancer Acute Pancreatic mass Acute Pleural effusion Acute Pleural effusion Acute Pulmonary nodules Acute Renal failure Acute Respiratory failure Acute
[2017-03-21] MEDS ORDERED: FUROSEMIDE 20 MG/2 ML VIAL IVP ONE (11:22)
--- NOTE | 2017-03-21 14:49 | PDDCSUM ---
Discharge Summary Discharge Summary: HPI and Hospital Course 66-year-old man with metastatic pancreatic cancer admitted with increasing shortness of breath. CT scan reveals enlarging left pleural effusion and loculated right pleural effusion. He was recently admitted here for malignant effusions which were tapped and complicated by hemothorax requiring chest tube placement. He was evaluated by Oncology and given his multiple comorbidities and metastases, a decision to proceed with Hospice has been made. He is being discharged to inpatient hospice. Discharge diagnosis: # metastatic prostate cancer complicated by pleural effusions. Unfortunately pt is poor candidate for VATS. Could do palliative thoracentesis. * Not a candidate for Pleurodesis, VATS. * Continue supportive care * Appreciate Pulmonary, ONC consults # diabetes: Continue to monitor blood sugars # history of alcoholic cirrhosis # history of complete heart block status post pacemaker placement # obstructive sleep apnea on CPAP at night # HTN: stop Amlodipine Discharge Meds: see med rec Discharge Exam: please see my physical exam from today's note. total time spent on discharge is 40 mins
--- NOTE | 2017-03-21 14:53 | PDIAF ---
- Diagnosis Diagnosis: metastatic pancreatic cancer, The patient is being dc to inpt hospice Code Status: Do Not Resuscitate - Medication Management Discharge Medications: Medications to Continue on Transfer RX: QUEtiapine FUMARATE [Seroquel 300mg (*)] 300 mg PO HS 05/18/16 [Last Taken 03/17/17] RX: Venlafaxine Xr [Effexor Xr] 150 mg PO DAILY 05/18/16 [Last Taken 03/18/17] RX: Hydrocodone/Acetaminophen [Edelstein 5/325 (*)] 1 each PO Q4HRS PRN 02/28/17 [ Last Taken 02/28/17] RX: LORazepam [Ativan (*)] 1 mg PO BID@02/28/17 [Last Taken 03/18/17] RX: Multivitamins [Multivitamin (*)] 1 each PO DAILY 02/28/17 [Last Taken ] RX: Omeprazole [Prilosec 20 mg] 40 mg PO DAILY 02/28/17 [Last Taken 03/18/17] RX: amLODIPine BESYLATE [Norvasc 10 mg (*)] 10 mg PO DAILY 02/28/17 [Last Taken 03/18/17] RX: morphINE SR [MS Contin/Oramorph SR 30 mg (*)] 30 mg PO BID 02/28/17 [Last Taken 03/18/17] Aspirin [Aspirin 81mg (*)] 81 mg PO DAILY 03/18/17 [Last Taken Unknown] Metoprolol Tartrate [Lopressor 25 mg (*)] 25 mg PO BID 03/18/17 [Last Taken 09/22] Ondansetron Odt [Zofran Odt 4 mg (*)] 8 mg PO Q8HRS PRN 03/18/17 [Last Taken Unknown] Discharge Medications: Refer to the Discharge Home Medication list for PRN reason. - Follow Up Care Current Providers and Referrals: Chitra Man MD [Primary Care Provider] - As per Instructions
== END 2017-03-21 15:40 | disposition hospice, home (50) | DRG 435 ==
LOC: UNDOADMIN 14:42 → F2N 18:50
PROVIDERS: ADMIT Internal Medicine; ATTEND Internal Medicine
DX: C25.9 Malignant neoplasm of pancreas, unspecified (principal); J91.0 Malignant pleural effusion; J96.21 Acute and chronic respiratory failure with hypoxia; K70.31 Alcoholic cirrhosis of liver with ascites; D64.81 Anemia due to antineoplastic chemotherapy; E11.9 Type 2 diabetes mellitus without complications; G47.33 Obstructive sleep apnea (adult) (pediatric); E78.5 Hyperlipidemia, unspecified; Z87.891 Personal history of nicotine dependence; Z96.649 Presence of unspecified artificial hip joint; Z87.01 Personal history of pneumonia (recurrent); Z95.0 Presence of cardiac pacemaker; Z66 Do not resuscitate
CPT/HCPCS: 96365; J1650; J1940; J2405; J2543; J3370; Q9967